=== PATIENT | female | born 1955 | race Caucasian/White ===

== ENCOUNTER 2016-08-22 22:34 | Inpatient (IN) | payer MEDICARE ==
[~2016-08-22] VITALS: Ht 160 cm; Wt 63.2 kg
[2016-08-22 22:30] VITALS: O2SAT 80
[2016-08-22 22:50] VITALS: O2SAT 100
[2016-08-22 22:55] VITALS: BP 125/67; PULSE 77; RESP 18; TEMP 93; TEMP 98; O2SAT 97
[2016-08-22] MEDS ORDERED: NOREPINEPHRINE 4 MG/4 ML AMP ONE (22:55)
[2016-08-22 23:00] VITALS: BP 77/35; PULSE 40; RESP 18; TEMP 93; O2SAT 96
[2016-08-22] MEDS ORDERED: LACTULOSE SYRUP 20 GM/30 ML CUP PO ONE (23:00)
[2016-08-22] MEDS ORDERED: SODIUM CHLORIDE 0.9% FLUSH 5 ML FLUSH IVF PRN (23:00)
[2016-08-22 23:12] VITALS: RESP 18
[2016-08-22 23:30] VITALS: BP 76/35; PULSE 90; RESP 18; O2SAT 96
[2016-08-22] MEDS ORDERED: fentaNYL DRIP 250 ML IV SCH (23:30)
[2016-08-22] MEDS ORDERED: MIDAZOLAM 100 MG/ML INJ 100 ML IV SCH (23:30)
[2016-08-22] MEDS ORDERED: CEFEPIME INJ 2,000 MG in SODIUM CHLORIDE 0.9% INJ 100 ML IV ONE (23:30)
[2016-08-22 23:39] LABS: BLOOD GAS BASE EXCESS -11.4 mmol/L (-2-2); BLOOD GAS CARBOXYHEMOGLOBIN 3.4 % (0-4); BLOOD GAS HCO3 13 mmol/L (22-26); BLOOD GAS METHEMOGLOBIN 1.6 % (0-2); BLOOD GAS O2 HGB SATURATION 96 % (90-100); BLOOD GAS PCO2 23 mmHg (38-42); BLOOD GAS PO2 340 mmHG (61-120); BLOOD GAS TOTAL HGB 8.3 G/DL (12.0-16.0); TEMP CORR TO 98.6
[2016-08-22 23:40] LABS: CRITICAL VALUE YES; OXYGEN DEVICE VENTILATOR
--- NOTE | 2016-08-22 23:40 | RADRPT ---
EXAM DATE/TIME: 08/22/2016 22:56 [facility] COMPARISON: No previous studies available for comparison. INDICATIONS : Intubation and right IJ central line placement. MEDICAL HISTORY : None. SURGICAL HISTORY : None. ENCOUNTER: Initial ACUITY: 1 day PAIN SCORE: Non-responsive. LOCATION: Bilateral chest FINDINGS: Endotracheal tube is in good position above the vicente. A right sided internal jugular vein catheter is in place without pneumothorax with its tip in the superior vena cava. A nasogastric tube is in gabrielle ce with its tip in the stomach. There is patchy alveolar disease bilaterally compatible with edema or pneumonia. A moderate size right sided effusion is present. CONCLUSION: 1. Satisfactory position of endotracheal tube as above. 2. Uncomplicated line placement. No evidence of pneumothorax. Víctor Cook MD on August 22, 2016 at 23:38 Board Certified Radiologist. This report was verified electronically.
[2016-08-22 23:41] LABS: DRAW SITE RT RADIAL; FIO2 100 %; NUMBER OF ARTERIAL PUNCTURES 1; STAT YES; ULNAR PULSE PRESENT; VENT SETTINGS VAC16/500/PEEP5
[2016-08-22] MEDS ORDERED: MIDAZOLAM 100 MG/ML INJ 100 ML ONE (23:47)
[2016-08-22] MEDS ORDERED: fentaNYL DRIP 250 ML ONE (23:48)
[2016-08-23] VITALS (29 sets, daily range): BP systolic 84–134; BP diastolic 41–54; PULSE 68–87; RESP 14–18; TEMP 93–99; O2SAT 96–100
[2016-08-23] MEDS ORDERED: SODIUM CHLOR 0.9% 1000 ML INJ 1,000 ML IV ONE
[2016-08-23 00:07] LABS: ALKALINE PHOSPHATASE 143 U/L (45-117); ALT (GPT) 43 U/L (10-53); AST (GOT) 99 U/L (15-37); BICARBONATE 12.7 MEQ/L (21.0-32.0); BLOOD UREA NITROGEN 99 MG/DL (7-18); CHLORIDE 90 MEQ/L (98-107); CREATINE KINASE 167 U/L (26-192); GLOMERULAR FILTRATION RATE 13 ML/MIN (>89); TOTAL BILIRUBIN ADULT 8.5 MG/DL (0.2-1.0)
[2016-08-23 00:11] LABS: SODIUM (NA) 121 MEQ/L (136-145)
[2016-08-23 00:12] LABS: ANION GAP 18 MEQ/L (5-15); POTASSIUM 8.3 MEQ/L (3.5-5.1)
[2016-08-23] MEDS ORDERED: PRED20 PO (00:14)
[2016-08-23] MEDS ORDERED: METO100T9 PO (00:14)
[2016-08-23] MEDS ORDERED: SPIR100T PO (00:14)
[2016-08-23] MEDS ORDERED: FURO40TA PO (00:14)
[2016-08-23] MEDS ORDERED: [UNRECOGNIZED DRUG - CODE] TOPICAL (00:14)
[2016-08-23] MEDS ORDERED: OMEP40CA2 PO (00:14)
[2016-08-23] MEDS ORDERED: DEXTROSE 50% IN WATER 50 ML VIAL(D50) IV PUSH ONE (00:15)
[2016-08-23] MEDS ORDERED: PIPERACIL-TAZO 2.25 GM PREMIX 50 ML IV ONE (00:15)
[2016-08-23] MEDS ORDERED: SODIUM BICARBONATE 8.4% SOLN 50 MEQ/50 ML VIAL SLOW IVP ONE (00:15)
[2016-08-23] MEDS ORDERED: SODIUM POLYSTYRENE SULFONATE SUSP 15 GM/60 ML CUP PO ONE ×2 (00:15→05:30)
[2016-08-23] MEDS: RESP: ALBUTEROL 2.5 MG/3 ML NEB (SCH) INH ×2 (00:27→00:28)
--- NOTE | 2016-08-23 00:29 | PD ---
HPI Chief Complaint: Code Blue Time Seen by Provider: 22:46 Travel History International Travel<30 days: No Contact w/Intl Traveler<30days: No Traveled to known affect area: No History of Present Illness HPI The patient arrives by EMS. Evidently she lost pulses twice en route and CPR was performed. Each time it was performed for about 1 minute. EMS reports the patient complained of a sudden onset of headache "my head" prior to a loss of consciousness associated with pulselessness on the vehicle monitor technician. She is 60 years old and is noted to have a history of COPD and cirrhosis, the latter secondary to alcoholism. She smokes about one cigarette per day. She no longer drinks alcohol. For the past few days she has been experiencing increasing generalized weakness according to the . Today she complained of pain in the region of the right abdomen. To touch she also felt somewhat cold. He called EMS for those reasons. Upon their arrival they found the patient to have a blood glucose of 30 and administered dextrose. 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 Patient was intubated shortly following arrival prior to intubation she was unable to state her name however stated she had pain in the abdomen generally. FORMERLY [facility] Past Medical History Narrative Medical Past medical history significant for cirrhosis, COPD and gastric ulcers. She smokes about one cigarette per day. states she has not drank alcohol recently. Social History Alcohol Use: Yes Tobacco Use: Yes Allergies-Medications (Allergen,Severity, Reaction): Coded Allergies: No Known Allergies (Unverified , 08/23/16) Reported Meds & Prescriptions Reported Meds & Active Scripts Active Reported Ciclopirox Topical (Ciclopirox Olamine) 0.77% Lotn 1 Applic TOPICAL BID Spironolactone 100 Mg Tab 100 Mg PO BIDPC Furosemide 40 Mg Tab 40 Mg PO BID Prednisone 20 Mg Tab 20 Mg PO BID Omeprazole 40 Mg Cap 40 Mg PO DAILY Metoprolol Succinate ER 24 HR (Metoprolol Succinate) 100 Mg Tab 100 Mg PO DAILY Review of Systems ROS Limitations: Clinical Condition Physical Exam Narrative GENERAL: 60-year-old female, chronically ill appearance, moderate distress SKIN: Warm and dry. Jaundice present. HEAD: Atraumatic. Normocephalic. EYES: Pupils equal and round. ++ scleral icterus. No injection or drainage. ENT: No nasal bleeding or discharge. Mucous membranes pink and moist. NECK: Trachea midline. No JVD. CARDIOVASCULAR: Regular rate and rhythm. No murmur appreciated. RESPIRATORY: No accessory muscle use. Clear to auscultation. Breath sounds equal bilaterally. GASTROINTESTINAL: Abdomen soft, non-tender, nondistended. Hepatic and splenic margins not palpable. MUSCULOSKELETAL: No obvious deformities. No clubbing. No cyanosis. No edema. Bilateral lower extremities 4+ edema pitting edema. NEUROLOGICAL: Moves all extremities in coordinated fashion. The cranial nerves appear symmetric. Gaze conjugate. Pupils equal round and reactive to light. Speech is comprehensive words though disorganized. She withdraws to pain. PSYCHIATRIC: Appropriate mood and affect; insight and judgment normal. Data Data Last Documented VS Vital Signs Date Time Temp Pulse Resp B/P Pulse Ox O2 Delivery O2 Flow Rate FiO2 08/23/16 00:30 86 18 95/46 96 Ventilator 08/23/16 00:18 93.0 08/22/16 22:50 100 08/22/16 22:30 15.00 VS reviewed Orders Electrocardiogram (08/22/16 22:46) Ammonia (08/22/16 22:46) Complete Blood Count With Diff (08/22/16 22:46) Comprehensive Metabolic Panel (08/22/16 22:46) Creatine Kinase (Cpk) (08/22/16 22:46) Prothrombin Time / Inr (Pt) (08/22/16 22:46) Act Partial Throm Time (Ptt) (08/22/16 22:46) Troponin I (08/22/16 22:46) Thyroid Stimulating Hormone (08/22/16 22:46) Lactic Acid Sepsis Protocol (08/22/16 22:46) Urinalysis - C+S If Indicated (08/22/16 22:46) Arterial Blood Gas (Abg) (08/22/16 22:46) Blood Culture (08/22/16 22:46) Chest, Single Ap (08/22/16 22:46) Ct Brain W/O Iv Contrast(Rout) (08/22/16 22:46) Blood Glucose (08/22/16 22:46) Ecg Monitoring (08/22/16 22:46) Iv Access Insert/Monitor (08/22/16 22:46) Oximetry (08/22/16 22:46) Urinary Catheter Insert/Apply (08/22/16 22:46) Sodium Chloride 0.9% Flush (Ns Flush) (08/22/16 23:00) Drug Screen, Random Urine (08/22/16 22:46) Alcohol (Ethanol) (08/22/16 22:46) ^ Orogastric Tube (08/22/16 22:46) Lactulose Liq (Lactulose Liq) (08/22/16 23:00) Lipase (08/22/16 22:46) Ct Abd/Pel W/O Iv Contrast (08/22/16 22:46) Norepinephrine-Dextrose Drip (Levophed-D (08/22/16 23:00) Norepinephrine Inj (Levophed Inj) (08/22/16 22:55) Ct Thorax/ Chest Wo Iv Contras (08/22/16 ) Neurological Rass Scale Q30MX2,Q2HX4,Q4H (08/22/16 23:29) Fentanyl Drip (Fentanyl Drip) (08/22/16 23:30) Midazolam Inj (Versed Inj) (08/22/16 23:30) Neurological Rass Scale Q30MX2,Q2HX4,Q4H (08/22/16 23:29) Cefepime Inj (Maxipime Inj) (08/22/16 23:30) Midazolam Inj (Versed Inj) (08/22/16 23:47) Fentanyl Drip (Fentanyl Drip) (08/22/16 23:48) Warming [place] / Warming Syst PRN (08/22/16 23:54) Sodium Chlor 0.9% 1000 Ml Inj (Ns 1000 M (08/23/16 00:00) Vancomycin Inj (Vancomycin Inj) (08/23/16 00:00) Insulin Human Regular Inj (Novolin R Inj (08/23/16 00:30) Dextrose 50% In [place] (Vial) Inj (D50w (Vi (08/23/16 00:15) Sodium Bicarbonate 8.4% Inj (Sodium Bica (08/23/16 00:15) Sodium Polysty Sulfate Liq (Kayexalate L (08/23/16 00:15) Insert Rectal Tube (08/23/16 00:13) Albuterol Neb (Albuterol Neb) (08/23/16 00:15) Piperacil-Tazo 2.25 Gm Premix (Zosyn 2.2 (08/23/16 00:15) Etomidate Inj (Amidate Inj) (08/23/16 00:30) Rocuronium Inj (Zemuron Inj) (08/23/16 00:30) Calcium Gluconate Inj (Calcium Gluconate (08/23/16 00:30) Sodium Bicarbonate 8.4% Inj (Sodium Bica (08/23/16 00:30) Calcium Gluconate Inj (Calcium Gluconate (08/23/16 00:30) Admit Order (Ed Use Only) (08/23/16 00:31) Urine Culture (08/22/16 23:15) Labs Laboratory Tests Test 08/22/16 08/22/16 08/22/16 08/22/16 23:10 23:15 23:28 23:59 Ammonia 79 MCMOL/L Sodium Level 121 MEQ/L Potassium Level 8.3 MEQ/L Chloride Level 90 MEQ/L Carbon Dioxide Level 12.7 MEQ/L Anion Gap 18 MEQ/L Blood Urea Nitrogen 99 MG/DL Creatinine 3.69 MG/DL Estimat Glomerular Filtration 13 ML/MIN Rate Random Glucose 126 MG/DL Lactic Acid Level 8.7 mmol/L Calcium Level 7.9 MG/DL Total Bilirubin 8.5 MG/DL Aspartate Amino Transf 99 U/L (AST/SGOT) Alanine Aminotransferase 43 U/L (ALT/SGPT) Alkaline Phosphatase 143 U/L Total Creatine Kinase 167 U/L Troponin I 0.06 NG/ML Total Protein 5.3 GM/DL Albumin 1.5 GM/DL Lipase 968 U/L Thyroid Stimulating Hormone 2.170 uIU/ML 3rd Gen Ethyl Alcohol Level LESS THAN 3 MG/DL Urine Color DARK-YELLOW Urine Turbidity CLOUDY Urine pH 5.5 Urine Specific [place] 1.016 Urine Protein 100 mg/dL Urine Glucose (UA) NEG mg/dL Urine Ketones NEG mg/dL Urine Occult Blood MOD Urine Nitrite NEG Urine Bilirubin NEG Urine Urobilinogen LESS THAN 2.0 MG/DL Urine Leukocyte Esterase LARGE Urine RBC 17 /hpf Urine WBC /hpf Urine WBC Clumps MOD Urine Bacteria MANY /hpf Urine Hyaline Casts 39 /lpf Microscopic Urinalysis Comment CATH-CULTURE IND Urine Opiates Screen NEG Urine Barbiturates Screen NEG Urine Amphetamines Screen NEG Urine Benzodiazepines Screen NEG Urine Cocaine Screen NEG Urine Cannabinoids Screen NEG Blood Gas Puncture Site RT RADIAL Blood Gas Patient Temperature 98.6 Blood Gas HCO3 13 mmol/L Blood Gas Base Excess -11.4 mmol/L Blood Gas Oxygen Saturation 96 % Arterial Blood pH 7.37 Arterial Blood Partial 23 mmHg Pressure CO2 Arterial Blood Partial 340 mmHG Pressure O2 Arterial Blood Oxygen Content 12.0 Vol % Arterial Blood 3.4 % Carboxyhemoglobin Arterial Blood Methemoglobin 1.6 % Blood Gas Hemoglobin 8.3 G/DL Oxygen Delivery Device VENTILATOR Blood Gas Ventilator Setting [id number] Blood Gas Inspired Oxygen 100 % Urine Random Creatinine 61.7 MG/DL Urine Random Sodium 38 MEQ/L Test 08/23/16 08/23/16 00:00 00:15 Prothrombin Time 30.0 SEC Prothromb Time International 2.6 RATIO Ratio Activated Partial 68.6 SEC Thromboplast Time White Blood Count 29.4 TH/MM3 Red Blood Count 2.24 MIL/MM3 Hemoglobin 9.0 GM/DL Hematocrit 26.1 % Mean Corpuscular Volume 116.6 FL Mean Corpuscular Hemoglobin 40.3 PG Mean Corpuscular Hemoglobin 34.5 % Concent Red Cell Distribution Width 15.4 % Platelet Count 59 TH/MM3 Mean Platelet Volume 9.2 FL Neutrophils (%) (Auto) 94.9 % Lymphocytes (%) (Auto) 1.2 % Monocytes (%) (Auto) 3.5 % Eosinophils (%) (Auto) 0.0 % Basophils (%) (Auto) 0.4 % Neutrophils # (Auto) 27.9 TH/MM3 Lymphocytes # (Auto) 0.4 TH/MM3 Monocytes # (Auto) 1.0 TH/MM3 Eosinophils # (Auto) 0.0 TH/MM3 Basophils # (Auto) 0.1 TH/MM3 CBC Comment AUTO DIFF Differential Total Cells 100 Counted Neutrophils % (Manual) 80 % Band Neutrophils % 15 % Lymphocytes % 2 % Monocytes % 1 % Neutrophils # (Manual) 28.5 TH/MM3 Metamyelocytes 2 % Differential Comment FINAL DIFF MANUAL Toxic Granulation 1+ Toxic Vacuolation PRESENT Platelet Estimate LOW Platelet Morphology Comment NORMAL Ovalocytes 1+ [place] Bodies PRESENT [place] Cells 1+ Acanthocytes 1+ Keratocytes OCC MDM Medical Decision Making Medical Screen Exam Complete: Yes Emergency Medical Condition: Yes Medical Record Reviewed: Yes Differential Diagnosis Anemia, multiorgan failure, sepsis, electrolyte imbalance, coronary occlusion, intracranial bleed or ischemic injury, hepatobiliary disease Narrative Course CBC & BMP Diagram 08/22/16 23:10 08/23/16 00:15 Bandemia 15% Total bilirubin 8.5 AST 99 Alkaline phosphatase 143 Ammonia 79 Troponin 0.06 Total protein 5.3 Albumin 1.3 Lipase 968 Lactic acid 8.7 Last [address] 08/22/16 2246 Signed Impressions: Service Date/Time: Tuesday, August 23, 2016 02:36 - CONCLUSION: 1. No evidence of acute intracranial pathology. No masses are identified. Víctor Cook MD Chest X-Ray 08/22/166 Signed Impressions: Service Date/Time: Monday, August 22, 2016 22:56 - CONCLUSION: 1. Satisfactory position of endotracheal tube as above. 2. Uncomplicated line placement. No evidence of pneumothorax. Víctor Cook MD Abdomen/Pelvis CT 08/22/162245 Signed Impressions: Service Date/Time: Tuesday, August 23, 2016 02:39 - CONCLUSION: 1. No evidence of acute abdominal or pelvic process. No masses are identified. 2. Large volume ascites Víctor Cook MD Chest CT 08/22/16 0000 Signed Impressions: Service Date/Time: Tuesday, August 23, 2016 02:39 - CONCLUSION: 1. Bilateral effusions larger on the right. 2. Bibasilar atelectasis 3. Ascites Víctor Cook MD Patient was intubated shortly following arrival. A right IJ triple lumen line was placed. Levophed was started shortly following arrival. Zosyn 2.25 g and 1.25 g of Vanco started. Patient has multiorgan dysfunction syndrome with a UTI bilateral pleural effusions with atelectasis. CT of the abdomen pelvis as well as the head are unremarkable. Warming blanket started. Numerous rounds of calcium and bicarbonate were administered as well as bicarbonate drip. The patient received total of 3 L crystalloid while under care of the ER. Critical Care Narrative Aggregate critical care time was 60 minutes. Time to perform other separately billable procedures was not included in the critical care time. My time did not include minutes spent treating any other patients simultaneously or on activities that did not directly contribute to the patient's treatment. The services I provided to this patient were to treat and/or prevent clinically significant deterioration that could result in: Cardiopulmonary arrest, mortality I provided critical care services requiring my management, as noted below: Chart data review, documentation time, medication orders and management, vital sign assessments/reviewing monitor data, ordering and reviewing lab tests, ordering and interpreting/reviewing x-rays and diagnostic studies, care of the patient and discussion of the patient with the admitting physicians. Procedures Procedure Narrative After the risks and benefits were discussed the following procedure was performed: INTUBATION: The patient was put in optimal position for the procedure. Rapid sequence intubation was initiated by me using 20 milligrams of etomidate IV and 50 milligrams of rocuronium IV. The patient was intubated with a 8-0 cuffed endotracheal tube. Tube placement was confirmed by visualization of the tube and balloon passing through the cords, capnometry and subsequent chest x-ray. Breath sounds were equal and well aerated bilaterally postintubation. No breath sounds over stomach. Patient tolerated procedure well. CENTRAL VENOUS LINE: The site was prepped with Betadine and sterilely draped. It was infiltrated with 1% lidocaine plain. The deep vein was cannulated using normal Seldinger technique. A 3 lumen central line was placed in the R IJ site and secured with simple interrupted suture. The site was sterilely dressed. The patient tolerated the procedure well. Ultrasound guidance employed. Sepsis Criteria SIRS Criteria (2 or more): Temp > 100.9 or < 96.8, Heart rate over 90, WBC > 42000, < 4000 or > 10% bands Sepsis Criteria (SIRS+source): Infect source susp/known Severe Sepsis (+one): Lactate >2 Septic Shock Criteria: Lactic acid >=4 Multiple Organ Dysfunction Syn: Evidence -2 organs failing Diagnosis Primary Impression: Multiple organ failure with liver failure Additional Impressions: Hyperkalemia Pancreatitis Qualified Code: K85.90 - Acute pancreatitis, unspecified complication status, unspecified pancreatitis type Hepatic encephalopathy Admitting Information Admitting Physician Requests: Garret Hartmann MD Aug 23, 2016 00:29
[2016-08-23 00:30] LABS: BACTERIA, URINE MANY /hpf; BLOOD, URINE MOD (NEG); GLUCOSE,URINE NEG (NEG); HYALINE CAST, URINE 39 /lpf (RARE); KETONE, URINE NEG (NEG); NITRITE,URINE NEG (NEG); PH, URINE 5.5 (5.0-8.5); URINE COLOR DARK-YELLOW (YELLW/STRAW)
[2016-08-23 00:30] LABS: APTT (PATIENT) 68.6 SEC (24.3-30.1); INTERNATIONAL NORMALIZED RATIO 2.6 RATIO
[2016-08-23] MEDS ORDERED: ROCURONIUM INJ 50 MG/5 ML VIAL IV ONE (00:30)
[2016-08-23] MEDS ORDERED: SODIUM CHLORIDE 0.9% FLUSH 5 ML FLUSH IV FLUSH PRN (00:30)
[2016-08-23] MEDS ORDERED: ETOMIDATE 20 MG/10 ML VIAL IV PUSH ONE (00:30)
[2016-08-23] MEDS ORDERED: INSULIN HUMAN REGULAR 1,000 UNITS/10 ML VIAL IV PUSH ONE ×2 (00:30→05:30)
[2016-08-23] MEDS ORDERED: CHLORHEXIDINE GLUCONATE 2 % 1 PACK (2 CLOTHS) TOP PRN (00:30)
[2016-08-23] MEDS ORDERED: CALCIUM GLUCONATE 10% 1 GM/10 ML VIAL IV PUSH ONE ×3 (00:30→05:30)
[2016-08-23] MEDS ORDERED: RESP: ALBUTEROL 2.5 MG/IPRATROPIUM 0.5 MG NEB (PRN) INH (00:30)
[2016-08-23] MEDS ORDERED: SODIUM BICARBONATE 8.4% INJ 50 MEQ/50 ML SYR IV PUSH ONE (00:30)
[2016-08-23] MEDS ORDERED: MISCELLANEOUS NURSING INFORMATION XX SCH (00:30)
[2016-08-23] MEDS ORDERED: ONDANSETRON HCL 4 MG/2 ML VIAL IV PRN (00:30)
[2016-08-23 00:33] LABS: COMMENT (UR) CATH-CULTURE IND; CULTURE IF INDICATED CATH CULTURE IND
[2016-08-23 00:40] LABS: AMPHETAMINE, URINE NEG (NEG); BARBITURATES, URINE NEG (NEG); COCAINE, URINE NEG (NEG)
[2016-08-23] MEDS ORDERED: Vancomycin Consult Pharmacy 1 EA OTHER SCH (00:45)
[2016-08-23] MEDS ORDERED: SODIUM CHLOR 0.9% 250 ML INJ 250 ML IV ONE (00:45)
[2016-08-23] MEDS: VANCOMYCIN INJ 1,250 MG in SODIUM CHLOR 0.9% 250 ML INJ 250 ML IV ONE ×2 (00:49→04:25)
[2016-08-23] MEDS: NOREPINEPHRINE-DEXTROSE DRIP 250 ML IV SCH ×7 (00:55→18:09)
[2016-08-23 01:03] LABS: AUTOMATED NEUTROPHIL # 27.9 TH/MM3 (1.8-7.7); BASOPHIL # 0.1 TH/MM3 (0-0.2); BASOPHIL % 0.4 % (0.0-2.0); HEMATOCRIT 26.1 % (35.0-46.0); LYMPH % 1.2 % (9.0-44.0); LYMPHOCYTE # 0.4 TH/MM3 (1.0-4.8); MEAN CELL VOLUME 116.6 FL (80.0-100.0); MEAN CORPUSCULAR HEMOGLOBIN 40.3 PG (27.0-34.0); MEAN CORPUSCULAR HGB CONC 34.5 % (32.0-36.0); MONO % 3.5 % (0.0-8.0); NEUT % 94.9 % (16.0-70.0); PLATELET COUNT 59 TH/MM3 (150-450); RED BLOOD COUNT 2.24 MIL/MM3 (4.00-5.30); RED CELL DISTRIBUTION WIDTH 15.4 % (11.6-17.2); WHITE BLOOD COUNT 29.4 TH/MM3 (4.0-11.0)
[2016-08-23 01:07] LABS: HEMO FLAGS AUTO DIFF
[2016-08-23 01:23] LABS: LACTIC ACID GHOST NOT REPORTABLE
[2016-08-23 01:39] LABS: BANDS 15 % (0-6); METAMYELOCYTES 2 % (0-1); NEUTROPHIL # MANUAL DIFF 28.5 TH/MM3 (1.8-7.7); PLATELET ESTIMATE SMEAR LOW (NORMAL); PLATELET MORPHOLOGY NORMAL (NORMAL); POLYS (SEG NEUTROPHILS) 80 % (16-70); SCAN/DIFF FINAL DIFF MANUAL; TOXIC GRANULATION 1+ (NORMAL); TOXIC VACUOLATION PRESENT (NONE SEEN); WBC DIFF SAMPLE 100
[2016-08-23 01:41] LABS: HOWELL-JOLLY BODIES PRESENT (NONE SEEN); OVALOCYTES 1+ (NORMAL)
[2016-08-23 01:42] LABS: ACANTHOCYTES 1+ (NORMAL); KERATOCYTES OCC (NORMAL)
[2016-08-23 01:44] LABS: BURR CELLS 1+ (NORMAL)
[2016-08-23] MEDS ORDERED: VANCOMYCIN HCL 500 MG ON-CALL/NS 100 ML IV ONE ×2 (02:00)
[2016-08-23] MEDS: VASOPRESSIN INJ 40 UNITS in DEXTROSE 5% IN WATER 100ML INJ 98 ML IV SCH ×4 (02:08→15:59)
[2016-08-23] MEDS: HYDROCORTISONE SOD SUCCINATE 100 MG VIAL IV PUSH SCH ×5 (02:09→23:37)
--- NOTE | 2016-08-23 02:52 | RADRPT ---
EXAM DATE/TIME: 08/23/2016 02:36 [facility] COMPARISON: No previous studies available for comparison. INDICATIONS : Altered mental status. RADIATION DOSE: 53.99 CTDIvol (mGy) MEDICAL HISTORY : Non-responsive. SURGICAL HISTORY : Non-responsive. ENCOUNTER: Initial ACUITY: 1 day PAIN SCALE: Non-responsive LOCATION: cranial TECHNIQUE: Multiple contiguous axial images were obtained of the head. Using automated exposure control and adj ustment of the mA and/or kV according to patient size, radiation dose was kept as low as reasonably a chievable to obtain optimal diagnostic quality images. FINDINGS: CEREBRUM: The ventricles are normal for age. No evidence of midline shift, mass lesion, hemorrhage or acute in farction. No extra-axial fluid collections are seen. POSTERIOR FOSSA: The cerebellum and brainstem are intact. The 4th ventricle is midline. The cerebellopontine angle i s unremarkable. EXTRACRANIAL: The visualized portion of the orbits is intact. SKULL: The calvaria is intact. No evidence of skull fracture. CONCLUSION: 1. No evidence of acute intracranial pathology. No masses are identified. Víctor Cook MD on August 23, 2016 at 2:49 Board Certified Radiologist. This report was verified electronically.
--- NOTE | 2016-08-23 02:55 | RADRPT ---
EXAM DATE/TIME: 08/23/2016 02:39 [facility] COMPARISON: CHEST SINGLE AP, August 22, 2016, 22:56. INDICATIONS : Shortness of breath. RADIATION DOSE: 11.36 CTDIvol (mGy) ; Combined studies - Thorax/Abdomen/Pelvis MEDICAL HISTORY : Non-responsive. SURGICAL HISTORY : Non-responsive. ENCOUNTER: Initial ACUITY: 1 day PAIN SCALE: Non-responsive LOCATION: chest TECHNIQUE: Volumetric scanning of the chest was performed. Using automated exposure control and adjustment of t he mA and/or kV according to patient size, radiation dose was kept as low as reasonably achievable to obtain optimal diagnostic quality images. FINDINGS: Large right-sided effusion is present with moderate left effusion. There is subsegmental atelectasis in the both bases. The mediastinum is shifted to the left. Examination of the mediastinum demonstrates no abnormally enlarged lymph nodes by CT criteria. No axi llary or hilar abnormalities are identified. Coronary artery calcifications are present. Endotracheal tube is in good position above the vicente. A nasogastric tube is in place with its tip in the stomac h. Ascites is present in the upper abdomen. CONCLUSION: 1. Bilateral effusions larger on the right. 2. Bibasilar atelectasis 3. Ascites Víctor Cook MD on August 23, 2016 at 2:52 Board Certified Radiologist. This report was verified electronically.
--- NOTE | 2016-08-23 03:01 | RADRPT ---
EXAM DATE/TIME: 08/23/2016 02:39 [facility] COMPARISON: No previous studies available for comparison. INDICATIONS : Abdomen pain. ORAL CONTRAST: No oral contrast ingested. RADIATION DOSE: 11.36 CTDIvol (mGy) ; Combined studies - Thorax/Abdomen/Pelvis MEDICAL HISTORY : Non-responsive. SURGICAL HISTORY : Non-responsive. ENCOUNTER: Initial ACUITY: 1 day PAIN SCALE: Non-responsive LOCATION: abdomen TECHNIQUE: Volumetric scanning of the abdomen and pelvis was performed. Using automated exposure control and ad justment of the mA and/or kV according to patient size, radiation dose was kept as low as reasonably achievable to obtain optimal diagnostic quality images. FINDINGS: Bilateral effusions and bibasilar atelectasis are present right greater than left. Large volume ascit es is present. The liver and spleen are normal in size and no focal defects are identified. The gallb ladder is absent. The pancreas demonstrates normal contour without evidence of mass or ductal dilatat ion. The adrenal glands and kidneys appear normal bilaterally. No hydronephrosis or mass lesions are identified. Examination of the pelvis demonstrates no evidence of free fluid or pelvic mass. No abnormally enlarg ed inguinal or retroperitoneal lymph nodes are present. The bladder is unremarkable. There is edema i n the colonic wall though this is likely related to the ascites. There is no evidence of abscess. CONCLUSION: 1. No evidence of acute abdominal or pelvic process. No masses are identified. 2. Large volume ascites Víctor Cook MD on August 23, 2016 at 2:54 Board Certified Radiologist. This report was verified electronically.
[2016-08-23 03:35] LABS: BLOOD GAS CARBOXYHEMOGLOBIN 2.7 % (0-4); BLOOD GAS HCO3 19 mmol/L (22-26); BLOOD GAS METHEMOGLOBIN 0.5 % (0-2); BLOOD GAS O2 HGB SATURATION 97 % (90-100); BLOOD GAS PCO2 33 mmHg (38-42); BLOOD GAS PO2 202 mmHg (61-120); BLOOD GAS TOTAL HGB 7.7 G/DL (12.0-16.0); CRITICAL VALUE NO; OXYGEN DEVICE VENTILATOR; TEMP CORR TO 98.6; VENT SETTINGS AC/18/450/PEEP5
[2016-08-23 03:36] LABS: DRAW SITE ALINE; FIO2 50 %; STAT NO
[2016-08-23 03:41] LABS: HEMATOCRIT 22.4 % (35.0-46.0); MEAN CELL VOLUME 116.3 FL (80.0-100.0); MEAN CORPUSCULAR HEMOGLOBIN 39.2 PG (27.0-34.0); MEAN CORPUSCULAR HGB CONC 33.7 % (32.0-36.0); PLATELET COUNT 49 TH/MM3 (150-450); RED BLOOD COUNT 1.92 MIL/MM3 (4.00-5.30); RED CELL DISTRIBUTION WIDTH 15.2 % (11.6-17.2); WHITE BLOOD COUNT 29.9 TH/MM3 (4.0-11.0)
[2016-08-23 03:43] LABS: REVIEW FLAG FINAL
[2016-08-23 03:56] LABS: INTERNATIONAL NORMALIZED RATIO 3.4 RATIO; PROTHROMBIN TIME - PATIENT 39.7 SEC (9.8-11.6)
[2016-08-23] MEDS: CHLORHEXIDINE GLUCONATE 2 % 1 PACK (2 CLOTHS) TOP SCH (04:00)
[2016-08-23 04:11] LABS: APTT (PATIENT) 131.9 SEC (24.3-30.1)
[2016-08-23 04:19] LABS: ALKALINE PHOSPHATASE 115 U/L (45-117); ALT (GPT) 40 U/L (10-53); ANION GAP 16 MEQ/L (5-15); AST (GOT) 92 U/L (15-37); BICARBONATE 19.1 MEQ/L (21.0-32.0); BLOOD UREA NITROGEN 95 MG/DL (7-18); CHLORIDE 97 MEQ/L (98-107); GLOMERULAR FILTRATION RATE 15 ML/MIN (>89); MAGNESIUM 2.3 MG/DL (1.5-2.5); POTASSIUM 5.5 MEQ/L (3.5-5.1); SODIUM (NA) 132 MEQ/L (136-145); TOTAL BILIRUBIN ADULT 8.4 MG/DL (0.2-1.0)
[2016-08-23] MEDS: DEXTROSE 10% INJ 1,000 ML IV SCH ×2 (04:26→23:37)
[2016-08-23] MEDS ORDERED: ATROPINE SULFATE 1 MG/10 ML SYRINGE IV ONE (05:00)
[2016-08-23] MEDS ORDERED: SODIUM BICARBONATE 8.4% INJ 50 MEQ/50 ML SYR IV ONE (05:00)
[2016-08-23] MEDS ORDERED: CALCIUM CHLORIDE 10% SOLN 1 GRAM/10 ML SYR IV ONE (05:00)
[2016-08-23] MEDS ORDERED: SODIUM BICARBONATE 8.4% INJ 50 MEQ/50 ML SYR SLOW IVP ONE (05:30)
[2016-08-23] MEDS ORDERED: DEXTROSE 50% IN WATER 50 ML SYRINGE IV ONE (05:30)
--- NOTE | 2016-08-23 06:03 | PD.PROCEDR ---
Procedure Note Procedure Procedure: Arterial Line Placement Left radial arterial line placement Diagnosis: End-stage liver disease, septic shock Indications: Need for beat to beat hemodynamic monitoring Consent: Consent is deemed emergent or medically necessary Description of the Procedure: Left wrist was prepped and draped sterilely. 1% lidocaine was used for local anesthesia. The pulse was located and a needle was advanced into the artery. A 20 gauge, 12 cm catheter was advanced into the artery using a modified Seldinger technique. The catheter was sutured to the skin and a sterile dressing was applied. The catheter was connected to a pressure transducer and an arterial waveform was noted. There were no immediate complications noted. There was minimal EBL. I personally performed the procedure. Mario Davis MD Aug 23, 2016 06:03
--- NOTE | 2016-08-23 06:09 | PD.PROCEDR ---
Procedure Note Procedure Diagnostic Paracentesis Procedure Note Diagnosis: End-stage liver disease, septic shock Indications: Septic shock with abdominal pain, need to rule out spontaneous bacterial peritonitis Consent: Written consent was obtained Anesthesia: Versed IV, fentanyl IV, 1% lidocaine locally Description of the Procedure: The patient was placed in the supine position. The area of largest fluid collection was marked pre-procedure using ultrasound guidance. The area was prepped and draped sterilely. 1% Lidcaine was infiltrated subcutaneously. A small incision was made using a #11 blade. A 12g needle and angiocath were advanced under negative pressure aspiration until fluid was obtained. The catheter was advanced over the needle easily and without resistance. At the conclusion of the procedure, the catheter was removed and a dressing was applied. There were no immediate complications noted. There was minimal EBL. The patient tolerated the procedure well. Findings: Clear, icteric fluid. Approximately 60 cc of fluid were removed. This was sent for culture and cell count. I personally performed the procedure. Mario Davis MD Aug 23, 2016 06:09
--- NOTE | 2016-08-23 06:12 | PD.PROCEDR ---
Procedure Note Procedure Percutaneous Pigtail Tube Thoracostomy Procedure Note Right-sided 10 [place] pigtail thoracostomy Diagnosis: End-stage liver disease, septic shock Indications: Large right-sided hemothorax Consent: Written consent was obtained Anesthesia: Versed IV, fentanyl IV, 1% lidocaine locally Description of the Procedure: The patient was placed in the supine position. The arm was abducted above the head and secured. The right lateral chest was prepped and draped sterilely to include the axilla and nipple. 1% Lidcaine was infiltrated subcutaneously and into the tissues down to the periosteum of the rib. The 5th intercostal space was identified. A small incision was made using a #11 blade. Initially, the plan is for diagnostic thoracentesis to rule out empyema. At this time 19-gauge needle was inserted and the pleural fluid was aspirated. However, the pleural fluid was bloody and nearly sidra hemothorax. At this point, given the concern for hemothorax secondary to chest compressions, the decision was made to transition to percutaneous tube thoracostomy. At the mid-axillary line, a 10 Fr pigtail catheter with stylet and pencil point trochar introducer were inserted superior to the adjacent rib and the pigtail catheter was advanced over the trochar in a modified Seldinger Technique, easily and without resistance. The catheter was connected to a Pleur -o-vac and connected to [id number] suction. The catheter was sutured to the skin using a 2-0 silk sandal suture and an occlusive dressing was applied. There were no immediate complications noted. There was minimal additional EBL. The patient tolerated the procedure well. Findings: Approximately 1 L of hemothorax was evacuated. There is no air leak. A Chest x-ray has been ordered. I personally performed the procedure. Mario Davis MD Aug 23, 2016 06:12
[2016-08-23] MEDS ORDERED: ALBUMIN HUMAN 25% 25 GM/100 ML BAGP IV ONE (06:14)
--- NOTE | 2016-08-23 06:33 | RADRPT ---
EXAM DATE/TIME: 08/23/2016 05:48 [facility] COMPARISON: CHEST SINGLE AP, August 22, 2016, 22:56. INDICATIONS : Shortness of breath, post thoracentesis right side. MEDICAL HISTORY : None. SURGICAL HISTORY : None. ENCOUNTER: Subsequent ACUITY: 2 days PAIN SCORE: Non-responsive. LOCATION: Right chest FINDINGS: The cardiac silhouette is normal in transverse diameter. Following right thoracentesis no pneumothora x is identified. There is significant reduction in the previously seen effusion. There is bilateral l ower lobe atelectasis versus pneumonia. Moderate size bilateral pleural effusions are identified. CONCLUSION: 1. No evidence of pneumothorax following thoracentesis. Víctor Cook MD on August 23, 2016 at 6:30 Board Certified Radiologist. This report was verified electronically.
--- NOTE | 2016-08-23 06:34 | HHI.HP ---
HPI Service Critical Care Medicine Primary Care Physician No Primary Care Physician Admission Diagnosis MODS, HyperK, Resp Failure Diagnosis: Chief Complaint: weakness Travel History International Travel<30 Days: No Contact w/Intl Traveler <30 Da: No Traveled to Known Affected Are: No History of Present Illness This is a 60-year-old female with a past medical history of end-stage liver disease secondary to alcoholic cirrhosis who was vacationing from [place] for the week and has had approximately 1 week of worsening weakness, malaise, fatigue which culminated tonight when her called 911 for worsening fatigue. In the ambulance on the way to the emergency department, however she had a PEA arrest and had one round of CPR and ROSC was obtained. In the emergency department, she was found to have a glucose in the 30s, a potassium over 8, in multiorgan system failure. Her lactate was 8. She was placed on norepinephrine. A right IJ central line was placed by the ER physician and she was intubated in the emergency department. Her does state that she has had about a week of worsening abdominal pain for which she did not seek medical attention. The does not know much more about her acute illness, but she denied any other symptoms prior to arriving. On my evaluation, the patient is intubated and unresponsive and unable to provide additional information. Review of Systems ROS Limitations: Clinical Condition, Intubated, Altered Mental Status, Unresponsive Past Family Social History Allergies: Coded Allergies: No Known Allergies (Unverified , 08/23/16) Past Medical History End-stage liver disease secondary to alcoholic cirrhosis Past Surgical History Unknown secondary to clinical condition of the patient Reported Medications Unknown secondary to clinical condition the patient Active Ordered Medications See MAR Family History Unknown secondary to the clinical condition of the patient. Unlikely to be contributory to her acute illness Social History Positive for EtOH. Her last drink was approximately a week ago. Physical Exam Vital Signs Vital Signs Date Time Temp Pulse Resp B/P Pulse Ox O2 Delivery O2 Flow Rate FiO2 08/23/16 03:49 98 30 08/23/16 02:20 100 100 08/23/16 01:30 95.0 82 18 84/41 96 Ventilator 08/23/16 01:00 93.0 86 18 105/48 96 Ventilator 08/23/16 00:42 100 40 08/23/16 00:30 86 18 95/46 96 Ventilator 08/23/16 00:18 93.0 69 18 111/50 96 Ventilator 08/23/16 00:09 93.0 08/22/16 23:30 90 18 76/35 96 Ventilator 08/22/16 23:12 18 08/22/16 23:00 93.0 40 18 77/35 96 Ventilator 08/22/16 22:55 93.0 77 18 125/67 97 08/22/16 22:50 100 100 08/22/16 22:30 80 15.00 Physical Exam GENERAL: Middle-aged female, lying in bed, critically ill, intubated. Very icteric HEENT: Pupils 4 mm, sluggishly reactive, equal, conjugate. Mucous membranes are dry. NECK: Trachea is midline. No JVD. CHEST: Equal chest rise. Coarse breath sounds. Intubated. CARDIOVASCULAR: Tachycardic rate, regular rhythm. No appreciable murmurs. ABDOMEN: Soft, protuberant, positive fluid wave, moderately distended, no guarding. Stigmata of chronic liver disease MUSCULOSKELETAL: 3+ peripheral edema of the lower extremities. Distal pulses 1+ . NEUROLOGICAL: RASS -4. Intubated, sedated. Weakly withdraws 4 Laboratory Laboratory Tests Test 08/22/16 08/22/16 08/22/16 08/23/16 23:10 23:15 23:28 00:00 Ammonia 79 Sodium Level 121 Potassium Level 8.3 Chloride Level 90 Carbon Dioxide Level 12.7 Anion Gap 18 Blood Urea Nitrogen 99 Creatinine 3.69 Estimat Glomerular Filtration 13 Rate Random Glucose 126 Lactic Acid Level 8.7 Calcium Level 7.9 Total Bilirubin 8.5 Aspartate Amino Transf 99 (AST/SGOT) Alanine Aminotransferase 43 (ALT/SGPT) Alkaline Phosphatase 143 Total Creatine Kinase 167 Troponin I 0.06 Total Protein 5.3 Albumin 1.5 Lipase 968 Thyroid Stimulating Hormone 2.170 3rd Gen Ethyl Alcohol Level LESS THAN 3 Urine Color DARK-YELLOW Urine Turbidity CLOUDY Urine pH 5.5 Urine Specific [place] 1.016 Urine Protein 100 Urine Glucose (UA) NEG Urine Ketones NEG Urine Occult Blood MOD Urine Nitrite NEG Urine Bilirubin NEG Urine Urobilinogen LESS THAN 2.0 Urine Leukocyte Esterase LARGE Urine RBC 17 Urine WBC Urine WBC Clumps MOD Urine Bacteria MANY Urine Hyaline Casts 39 Microscopic Urinalysis Comment CATH-CULTURE IND Urine Opiates Screen NEG Urine Barbiturates Screen NEG Urine Amphetamines Screen NEG Urine Benzodiazepines Screen NEG Urine Cocaine Screen NEG Urine Cannabinoids Screen NEG Blood Gas Puncture Site RT RADIAL Blood Gas Patient Temperature 98.6 Blood Gas HCO3 13 Blood Gas Base Excess -11.4 Blood Gas Oxygen Saturation 96 Arterial Blood pH 7.37 Arterial Blood Partial 23 Pressure CO2 Arterial Blood Partial 340 Pressure O2 Arterial Blood Oxygen Content 12.0 Arterial Blood 3.4 Carboxyhemoglobin Arterial Blood Methemoglobin 1.6 Blood Gas Hemoglobin 8.3 Oxygen Delivery Device VENTILATOR Blood Gas Ventilator Setting VAC16/500/PEEP5 Blood Gas Inspired Oxygen 100 Prothrombin Time 30.0 Prothromb Time International 2.6 Ratio Activated Partial 68.6 Thromboplast Time Test 08/23/16 08/23/16 08/23/16 08/23/16 00:15 00:45 01:56 03:22 White Blood Count 29.4 Red Blood Count 2.24 Hemoglobin 9.0 Hematocrit 26.1 Mean Corpuscular Volume 116.6 Mean Corpuscular Hemoglobin 40.3 Mean Corpuscular Hemoglobin 34.5 Concent Red Cell Distribution Width 15.4 Platelet Count 59 Mean Platelet Volume 9.2 Neutrophils (%) (Auto) 94.9 Lymphocytes (%) (Auto) 1.2 Monocytes (%) (Auto) 3.5 Eosinophils (%) (Auto) 0.0 Basophils (%) (Auto) 0.4 Neutrophils # (Auto) 27.9 Lymphocytes # (Auto) 0.4 Monocytes # (Auto) 1.0 Eosinophils # (Auto) 0.0 Basophils # (Auto) 0.1 CBC Comment AUTO DIFF Differential Total Cells 100 Counted Neutrophils % (Manual) 80 Band Neutrophils % 15 Lymphocytes % 2 Monocytes % 1 Neutrophils # (Manual) 28.5 Metamyelocytes 2 Differential Comment FINAL DIFF MANUAL Toxic Granulation 1+ Toxic Vacuolation PRESENT Platelet Estimate LOW Platelet Morphology Comment NORMAL Ovalocytes 1+ [place]-Verdigre Bodies PRESENT [place] Cells 1+ Acanthocytes 1+ Keratocytes OCC Blood Type O POSITIVE O POSITIVE Blood Bank Comment Serum Osmolality 319 Lactic Acid Level 9.2 Blood Gas Puncture Site LILIBETH Blood Gas Patient Temperature 98.6 Blood Gas HCO3 19 Blood Gas Base Excess -5.0 Blood Gas Oxygen Saturation 97 Arterial Blood pH 7.39 Arterial Blood Partial 33 Pressure CO2 Arterial Blood Partial 202 Pressure O2 Arterial Blood Oxygen Content 11.0 Arterial Blood 2.7 Carboxyhemoglobin Arterial Blood Methemoglobin 0.5 Blood Gas Hemoglobin 7.7 Oxygen Delivery Device VENTILATOR Blood Gas Ventilator Setting AC/18/450/PEEP5 Blood Gas Inspired Oxygen 50 Test 08/23/16 03:26 White Blood Count 29.9 Red Blood Count 1.92 Hemoglobin 7.5 Hematocrit 22.4 Mean Corpuscular Volume 116.3 Mean Corpuscular Hemoglobin 39.2 Mean Corpuscular Hemoglobin 33.7 Concent Red Cell Distribution Width 15.2 Platelet Count 49 Mean Platelet Volume 9.1 Prothrombin Time 39.7 Prothromb Time International 3.4 Ratio Activated Partial 131.9 Thromboplast Time Sodium Level 132 Potassium Level 5.5 Chloride Level 97 Carbon Dioxide Level 19.1 Anion Gap 16 Blood Urea Nitrogen 95 Creatinine 3.10 Estimat Glomerular Filtration 15 Rate Random Glucose 103 Lactic Acid Level 8.7 Calcium Level 7.9 Phosphorus Level 6.6 Magnesium Level 2.3 Total Bilirubin 8.4 Aspartate Amino Transf 92 (AST/SGOT) Alanine Aminotransferase 40 (ALT/SGPT) Alkaline Phosphatase 115 Total Protein 4.5 Albumin 1.4 Date/Time Procedure Status Source Growth 08/22/16 23:35 Aerobic Blood Culture Received Blood Peripheral Pending 08/22/16 23:35 Anaerobic Blood Culture Received Blood Peripheral Pending 08/22/16 23:15 Urine Culture Worksheet Urine Catheterized Urine Pending Result Diagram: 08/23/16 0326 08/23/16325 Imaging I performed a bedside critical care ultrasound which demonstrates mild LV systolic dysfunction globally, preserved RV function, no significant valvular lesions. No pericardial effusion. Collapsible IVC. Last [address] 08/22/162245 Signed Impressions: Service Date/Time: Tuesday, August 23, 2016 02:36 - CONCLUSION: 1. No evidence of acute intracranial pathology. No masses are identified. Víctor Cook MD Chest X-Ray 08/22/162245 Signed Impressions: Service Date/Time: Monday, August 22, 2016 22:56 - CONCLUSION: 1. Satisfactory position of endotracheal tube as above. 2. Uncomplicated line placement. No evidence of pneumothorax. Víctor Cook MD Abdomen/Pelvis CT 08/22/162245 Signed Impressions: Service Date/Time: Tuesday, August 23, 2016 02:39 - CONCLUSION: 1. No evidence of acute abdominal or pelvic process. No masses are identified. 2. 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 Given her history, it seems as if septic shock with delayed presentation to be the ultimate cause of her clinical decline. As far as her cardiac arrest, this could be hyperkalemia or hypoglycemia or from refractory shock. In terms of her shock state, this could be from acute pancreatitis given her elevated lipase level, this also could be from spontaneous bacterial peritonitis. Her states that she gets weekly high-volume paracenteses so there is clearly an access for abdominal infection. This could also be acute pyelonephritis or urinary tract infection. In addition all this, her CT chest abdomen and pelvis demonstrates a large right pleural effusion which could be ascites from microperforations the diaphragm or an empyema or hemothorax from's chest compressions. We will pursue diagnostic paracentesis, thoracentesis. We will treat her empirically with vancomycin and Zosyn. We will pretty culture her. She is now on 2 pressors and we will aggressively manage her sepsis. We will also aggressively manage her hyperkalemia, which if unresponsive to conservative measures may require renal replacement therapy. At this point she is severely critically ill in multiorgan system failure. I'm not sure given her severity of her end-stage liver disease if she will survive this acute illness. I have discussed this with her who understands. An aggressive and she remains a full code. Plan by systems: Neurologic: Metabolic encephalopathy Hyperammonemia Possible hypoxic ischemic encephalopathy Alcohol abuse Every hour neuro checks Versed for sedation, goal RASS -2. Think this point she is still too hemodynamically unstable for propofol When she is more clinically stable, we will need to restart lactulose and rifaximin for her elevated ammonia level, however she is too unstable this point Monitor for alcohol withdrawal Avoiding long-acting sedating meds IV thiamine Respiratory: Acute hypoxic and hypercarbic respiratory failure Right-sided hemothorax Placed right-sided atypical chest tube, please see separate procedure for details Vent bundle Head of bed 30 Wean FiO2 for goal SPO2 greater than 90% Low tidal volume ventilation Does not meet SBT criteria today for hemodynamic instability Cardiovascular: Septic shock Status post cardiac arrest Norepinephrine and vasopressin for goal map greater than 65 Cardiac arrest could be secondary to hyperkalemia or hypoglycemia or septic shock with delayed presentation Renal: Acute kidney injury Wills for accurate I's and O's Follow-up urine electrolytes CT abdomen and pelvis without evidence of hydronephrosis -- Strict I/Os FEN/GI: Acute life-threatening hyperkalemia Intravascular hypovolemia End-stage liver disease Alcoholic cirrhosis Elevated lipase Possible spontaneous bacterial peritonitis Ascites Acute protein calorie malnutritionsevere Severe hypoalbuminemia Nothing by mouth given high vasopressor requirements Kayexalate, insulin D50, sodium bicarbonate, calcium chloride for hyperkalemia. We'll recheck potassium. May require renal replacement therapy Diagnostic paracentesis Follow-up peritoneal cultures Albumin 25% 100 mL's 1 given hemodynamic instability with septic shock and a serum albumin level less than 2.5 Daily BMP, LFTs Heme/ID: Coagulopathy secondary to end-stage liver disease Septic shock Possible spontaneous bacterial peritonitis Urinary tract infection 2 units FFP while doing procedures Daily CBC Daily coags Follow-up sputum, blood, urine, peritoneal, pleural cultures Vancomycin with pharmacy dosing Zosyn 2.25 g IV every 8 hours, renal dose Endocrine: Life-threatening hypoglycemia Presumed adrenal insufficiency D10W at 30 cc an hour Every hour Accu-Cheks Hydrocortisone 50 mg IV every 6 hours Prophylaxis: GI Prophylaxis Protonix 40 mg IV every 24 hours DVT Prophylaxis -- SCDs Holding pharmacologic DVT prophylaxis given severe coagulopathy Lines: 08/23 right IJ triple-lumen catheter 2 left radial arterial line 08/23 Wills 215 right 10 [place] pigtail chest tube Dispo: Admit to the ICU. She is very critically ill. This patient remains critically ill with one or more organ systems which are or may become a threat to life. I have spent in excess of 85 minutes discontinuously in the care and management of this patient. This time is exclusive of procedures, and includes, but is not limited to, evaluation of the patient, review of the medical record, discussions with family, consultants, nursing staff, or respiratory therapy, and documentation in the medical record. Code Status Full Code Mario Davis MD Aug 23, 2016 06:34
[2016-08-23] MEDS: RESP: ALBUTEROL 2.5 MG/IPRATROPIUM 0.5 MG NEB (SCH) INH ×3 (07:47→21:39)
[2016-08-23 07:58] LABS: TOTAL PROTEIN,PLEURAL FLUID 1.8 GM/DL
[2016-08-23 08:16] LABS: AUTOMATED NEUTROPHIL # 26.9 TH/MM3 (1.8-7.7); EOSINOPHIL % 0.1 % (0.0-4.0); LYMPH % 1.4 % (9.0-44.0); LYMPHOCYTE # 0.4 TH/MM3 (1.0-4.8); MEAN CELL VOLUME 116.2 FL (80.0-100.0); MEAN CORPUSCULAR HEMOGLOBIN 39.2 PG (27.0-34.0); MEAN CORPUSCULAR HGB CONC 33.8 % (32.0-36.0); MONO % 3.3 % (0.0-8.0); NEUT % 95.2 % (16.0-70.0); PLATELET COUNT 35 TH/MM3 (150-450); RED BLOOD COUNT 1.56 MIL/MM3 (4.00-5.30); RED CELL DISTRIBUTION WIDTH 15.5 % (11.6-17.2); WHITE BLOOD COUNT 28.3 TH/MM3 (4.0-11.0)
[2016-08-23 08:27] LABS: HEMO FLAGS AUTO DIFF
[2016-08-23 08:28] LABS: PERITONEAL WBC 127 /MM3 (0-10)
[2016-08-23 08:29] LABS: HEMATOCRIT 18.1 % (35.0-46.0)
[2016-08-23 08:29] LABS: PERITONEAL LYMPHS 17 %; PERITONEAL MONOS 3 %; PERITONEAL POLYS(SEGS) 80 %
[2016-08-23 08:30] LABS: PLEURAL FLUID LYMPHS 2 %
[2016-08-23] MEDS: CHLORHEXIDINE 0.12% (ORAL KIT) 15 ML CUP MT SCH ×2 (08:37→19:45)
[2016-08-23 08:39] LABS: BICARBONATE 23.5 MEQ/L (21.0-32.0)
[2016-08-23] MEDS ORDERED: PANTOPRAZOLE SODIUM 40 MG VIAL IV SCH (09:00)
[2016-08-23] MEDS: SODIUM CHLORIDE 0.9% FLUSH 5 ML FLUSH IV FLUSH SCH ×2 (09:07→19:45)
[2016-08-23] MEDS: PIPERACIL-TAZO 2.25 GM PREMIX 50 ML IV SCH ×2 (09:07→17:04)
[2016-08-23] MEDS ORDERED: PHENYLEPHRINE HCL 160 MG/D5W 484 ML ADMIX IV SCH ×2 (10:00)
[2016-08-23 10:12] LABS: BANDS 24 % (0-6); NEUTROPHIL # MANUAL DIFF 25.5 TH/MM3 (1.8-7.7); POLYS (SEG NEUTROPHILS) 66 % (16-70); TOXIC GRANULATION 1+ (NORMAL); WBC DIFF SAMPLE 100
[2016-08-23 10:13] LABS: ACANTHOCYTES 1+ (NORMAL); OVALOCYTES 1+ (NORMAL); PLATELET ESTIMATE SMEAR LOW (NORMAL); PLATELET MORPHOLOGY NORMAL (NORMAL); SCAN/DIFF FINAL DIFF MANUAL
[2016-08-23 10:14] LABS: KERATOCYTES OCC (NORMAL)
--- NOTE | 2016-08-23 11:00 | EC ---
Study Study Date:08/23/2016 STUDY CONCLUSIONS SUMMARY - Procedure narrative: Transthoracic echocardiography. Image quality was good. Scanning was performed from the parasternal, apical, and subcostal acoustic windows. - Left ventricle: The cavity size was normal. Wall thickness was normal. Systolic function was vigorous. The estimated ejection fraction was in the range of 65% to 70%. Wall motion was normal; there were no regional wall motion abnormalities. - Mitral valve: Trace regurgitation. If LV function is below 40, please consider prescribing an ACEI or ARB or document rationale for non-use. PROCEDURE DATA STUDY STATUS: Elective. Procedure: Transthoracic echocardiography. Image quality was good. Scanning was performed from the parasternal, apical, and subcostal acoustic windows. Study completion: The patient tolerated the procedure well. Transthoracic echocardiography. M-mode, complete 2D, complete spectral Doppler, and color Doppler. Patient status: Inpatient. CARDIAC ANATOMY LEFT VENTRICLE: The cavity size was normal. Wall thickness was normal. Systolic function was vigorous. The estimated ejection fraction was in the range of 65% to 70%. Wall motion was normal; there were no regional wall motion abnormalities. AORTIC VALVE: Trileaflet; normal thickness leaflets. Doppler: Transvalvular velocity was within the normal range. There was no stenosis. No regurgitation. Mean gradient: 10mm Hg (S). Peak gradient: 22mm Hg (S). AORTA: Aortic root: The aortic root was normal in size. MITRAL VALVE: Structurally normal valve. Doppler: Transvalvular velocity was within the normal range. There was no evidence for stenosis. Trace regurgitation. LEFT ATRIUM: The atrium was normal in size. RIGHT VENTRICLE: The cavity size was normal. Wall thickness was normal. PULMONIC VALVE: Doppler: Transvalvular velocity was within the normal range. There was no evidence for stenosis. No regurgitation. TRICUSPID VALVE: Structurally normal valve. Doppler: Transvalvular velocity was within the normal range. No regurgitation. PULMONARY ARTERY: The main pulmonary artery was normal-sized. Systolic pressure was within the normal range. RIGHT ATRIUM: The atrium was normal in size. PERICARDIUM: There was no pericardial effusion. SYSTEMIC VEINS: Inferior vena cava: The vessel was normal in size. BASIC MEASUREMENTS ADULT NORMAL Left ventricle LV internal dimension, ED, chordal level, 43.2 mm 43-52 PLAX LV internal dimension, ES, chordal level, 28.8 mm 23-38 PLAX Fractional shortening, chordal level, PLAX 33 % >29 LV posterior wall thickness, ED 5.96 mm IVS/LVPW ratio, ED 1.13 <1.3 Ventricular septum Septal thickness, ED 6.73 mm Aortic valve Leaflet separation 18 mm 15-26 Left atrium Anterior-posterior dimension 34 mm Right ventricle RV internal dimension, ED, PLAX 19 mm 19-38 BASIC MEASUREMENTS ADULT NORMAL Aortic valve Leaflet separation 18 mm 15-26 DOPPLER MEASUREMENTS ADULT NORMAL Aortic valve Peak velocity, S 237 cm/s Mean velocity, S 142 cm/s VTI, S 48.1 cm Mean gradient, S 10 mm Hg Peak gradient, S 22 mm Hg Mitral valve Maximal regurgitant velocity 445 cm/s Tricuspid valve Regurgitant peak velocity 276 cm/s Peak RV-RA gradient, S 30 mm Hg Maximal regurgitant velocity 276 cm/s Systemic veins Estimated CVP 10 mm Hg Right ventricle RV pressure, S *54 mm Hg <30 LEGEND: Mean values are shown as u=mean value. Asterisk (*) jerome values outside specified normal range. Prepared and signed by Marbin Werner [id number]
[2016-08-23 13:29] LABS: HEMATOCRIT 21.1 % (35.0-46.0)
[2016-08-23 13:31] LABS: APTT (PATIENT) 44.1 SEC (24.3-30.1); INTERNATIONAL NORMALIZED RATIO 1.7 RATIO; PROTHROMBIN TIME - PATIENT 19.4 SEC (9.8-11.6)
[2016-08-23 13:39] LABS: REVIEW FLAG FINAL
[2016-08-23 13:41] LABS: POTASSIUM 5.2 MEQ/L (3.5-5.1)
[2016-08-23 13:43] LABS: INDIRECT BILIRUBIN 5.1 MG/DL (0.0-0.8)
--- NOTE | 2016-08-23 14:14 | HHI.CCPN ---
Subjective Remarks/Hospital Course This is a 60-year-old female with a past medical history of end-stage liver disease secondary to alcoholic cirrhosis who was vacationing from [place] for the week and has had approximately 1 week of worsening weakness, malaise, fatigue which culminated tonight when her called 911 for worsening fatigue. In the ambulance on the way to the emergency department, however she had a PEA arrest and had one round of CPR and ROSC was obtained. In the emergency department, she was found to have a glucose in the 30s, a potassium over 8, in multiorgan system failure. Her lactate was 8. She was placed on norepinephrine. A right IJ central line was placed by the ER physician and she was intubated in the emergency department. Her does state that she has had about a week of worsening abdominal pain for which she did not seek medical attention. The does not know much more about her acute illness, but she denied any other symptoms prior to arriving. 08/23: After numerous blood, platelet, and plasma transfusions she is finally correcting her coagulation profile. Urine output marginal, acid-base balance still critical. Gas exchange acceptable. Objective Vital Signs Date Time Temp Pulse Resp B/P Pulse Ox O2 Delivery O2 Flow Rate FiO2 08/23/16 12:00 84 08/23/16 12:00 97.9 16 122/50 99 08/23/16 12:00 30 08/23/16 01:30 Ventilator 08/22/16 22:30 15.00 Result Diagram: 08/23/16 1300 08/23/16 1300 Other Results Laboratory Tests Test 08/22/16 08/23/16 23:28 03:22 Blood Gas Puncture Site RT RADIAL LILIBETH Blood Gas Patient Temperature 98.6 98.6 Blood Gas HCO3 13 mmol/L 19 mmol/L (22-26) (22-26) Blood Gas Base Excess -11.4 mmol/L -5.0 mmol/L (-2-2) (-2-2) Blood Gas Oxygen Saturation 96 % (90-100) 97 % (90-100) Arterial Blood pH 7.37 7.39 (7.380-7.420) (7.380-7.420) Arterial Blood Partial 23 mmHg (38-42) 33 mmHg (38-42) Pressure CO2 Arterial Blood Partial 340 mmHG 202 mmHg Pressure O2 (61-120) (61-120) Arterial Blood Oxygen Content 12.0 Vol % 11.0 Vol % (12.0-20.0) (12.0-20.0) Arterial Blood 3.4 % (0-4) 2.7 % (0-4) Carboxyhemoglobin Arterial Blood Methemoglobin 1.6 % (0-2) 0.5 % (0-2) Blood Gas Hemoglobin 8.3 G/DL 7.7 G/DL (12.0-16.0) (12.0-16.0) Oxygen Delivery Device VENTILATOR VENTILATOR Blood Gas Ventilator Setting VAC16/500/PEEP5 AC/18/450/PEEP5 Blood Gas Inspired Oxygen 100 % 50 % Imaging I performed a bedside critical care ultrasound which demonstrates mild LV systolic dysfunction globally, preserved RV function, no significant valvular lesions. No pericardial effusion. Collapsible IVC. Last [address] 08/22/162245 Signed Impressions: Service Date/Time: Tuesday, August 23, 2016 02:36 - CONCLUSION: 1. No evidence of acute intracranial pathology. No masses are identified. Víctor Cook MD Chest X-Ray 08/22/162245 Signed Impressions: Service Date/Time: Monday, August 22, 2016 22:56 - CONCLUSION: 1. Satisfactory position of endotracheal tube as above. 2. Uncomplicated line placement. No evidence of pneumothorax. Víctor Cook MD Abdomen/Pelvis CT 08/22/162245 Signed Impressions: Service Date/Time: Tuesday, August 23, 2016 02:39 - CONCLUSION: 1. No evidence of acute abdominal or pelvic process. No masses are identified. 2. Large volume ascites Víctor Cook MD Objective Remarks GENERAL: Middle-aged ill-appearing female, lying in bed, critically ill, intubated. HEENT: Pupils 3 mm, sluggishly reactive, equal, conjugate. . NECK: Trachea is midline. No JVD. Orally intubated. CHEST: Equal chest rise. Coarse breath sounds. Acceptable air movement. CARDIOVASCULAR: Tachycardic rate, regular rhythm. No appreciable murmurs. + JVD , cvp 16. ABDOMEN: Soft, protuberant, positive fluid wave, moderately distended, no guarding. Stigmata of chronic liver disease MUSCULOSKELETAL: 2+ peripheral edema of the lower extremities. Distal pulses 1+ . NEUROLOGICAL: Intubated, mildly sedated. Weakly withdraws 4 to stimulation. A/P Assessment and Plan Assessment: This is a 60-year-old female with end-stage liver disease secondary to alcoholic cirrhosis who presents after cardiac arrest with multiorgan system failure. Given her history, it seems as if septic shock with delayed presentation to be the ultimate cause of her clinical decline. As far as her cardiac arrest, this could be hyperkalemia or hypoglycemia or from refractory shock. In terms of her shock state, this could be from acute pancreatitis given her elevated lipase level, this also could be from spontaneous bacterial peritonitis. Her states that she gets weekly high-volume paracenteses so there is clearly an access for abdominal infection. This could also be acute pyelonephritis or urinary tract infection. In addition all this, her CT chest abdomen and pelvis demonstrates a large right pleural effusion which could be ascites from microperforations the diaphragm or an empyema or hemothorax from's chest compressions. We will pursue diagnostic paracentesis, thoracentesis. We will treat her empirically with vancomycin and Zosyn. We will pretty culture her. She is now on 2 pressors and we will aggressively manage her sepsis. We will also aggressively manage her hyperkalemia, which if unresponsive to conservative measures may require renal replacement therapy. At this point she is severely critically ill in multiorgan system failure. I'm not sure given her severity of her end-stage liver disease if she will survive this acute illness. I have discussed this with her who understands. Plan by systems: Neurologic: Metabolic encephalopathy Hyperammonemia Possible hypoxic ischemic encephalopathy Alcohol abuse Every hour neuro checks Versed for sedation, goal RASS -2. Think this point she is still too hemodynamically unstable for propofol When she is more clinically stable, we will need to restart lactulose and rifaximin for her elevated ammonia level, however she is too unstable this point Monitor for alcohol withdrawal Avoiding long-acting sedating meds IV thiamine Respiratory: Acute hypoxic and hypercarbic respiratory failure Right-sided hemothorax Placed right-sided atypical chest tube, please see separate procedure for details Vent bundle Head of bed 30 Wean FiO2 for goal SPO2 greater than 90% Low tidal volume ventilation Does not meet SBT criteria today for hemodynamic instability Cardiovascular: Septic shock Status post cardiac arrest Norepinephrine and vasopressin for goal map greater than 65 Cardiac arrest could be secondary to hyperkalemia or hypoglycemia or septic shock with delayed presentation Renal: Acute kidney injury Wills for accurate I's and O's Follow-up urine electrolytes CT abdomen and pelvis without evidence of hydronephrosis -- Strict I/Os FEN/GI: Acute life-threatening hyperkalemia Intravascular hypovolemia End-stage liver disease Alcoholic cirrhosis Elevated lipase Possible spontaneous bacterial peritonitis Ascites Acute protein calorie malnutritionsevere Severe hypoalbuminemia Nothing by mouth given high vasopressor requirements Kayexalate, insulin D50, sodium bicarbonate, calcium chloride for hyperkalemia. We'll recheck potassium. May require renal replacement therapy Diagnostic paracentesis Follow-up peritoneal cultures Albumin 25% 100 mL's 1 given hemodynamic instability with septic shock and a serum albumin level less than 2.5 Daily BMP, LFTs Heme/ID: Coagulopathy secondary to end-stage liver disease Septic shock Possible spontaneous bacterial peritonitis Urinary tract infection 2 units FFP while doing procedures Daily CBC Daily coags Follow-up sputum, blood, urine, peritoneal, pleural cultures Vancomycin with pharmacy dosing Zosyn 2.25 g IV every 8 hours, renal dose -Additional 2 u FFP. --DDAVP Endocrine: Life-threatening hypoglycemia Presumed adrenal insufficiency D10W at 30 cc an hour Every hour Accu-Cheks Hydrocortisone 50 mg IV every 6 hours Prophylaxis: GI Prophylaxis Protonix 40 mg IV every 24 hours DVT Prophylaxis -- SCDs Holding pharmacologic DVT prophylaxis given severe coagulopathy Lines: 215 right IJ triple-lumen catheter 2/15 left radial arterial line 215 Wills 2/15 right 10 [place] pigtail chest tube Overall impression: Critically ill and deteriorating. Multisystem organ failure and cardiac arrest last evening. Coagulopathy persists. It will be very difficult for her to regain enough liver function to survive this infection. Not a transplant candidate under any circumstances. Fulminant sepsis, source unclear. Discussed renal, liver, lung, coagulation defects and encephalopathy with at the bedside. I expressed that this probably started as severe sepsis and hypotension followed by acidosis and cardiovascular collapse. The period of decline appears to have involved 4-5 days prior to admission. Critical Care 50 mins Dean Flores MD Aug 23, 2016 14:14
[2016-08-23] MEDS ORDERED: DESMOPRESSIN ACETATE 4 MCG/ML VIAL IV PUSH ONE (14:30)
[2016-08-23] MEDS ORDERED: MISC INFORMATION XX ONE (19:00)
[2016-08-23] MEDS ORDERED: DEXTROSE 50% IN WATER 50 ML VIAL(D50) IV PUSH PRN (19:00)
[2016-08-23] MEDS: INSULIN REGULAR 100 UNITS/100 ML NS ALGORITHM 3 IV SCH ×2 (20:25)
[2016-08-23 20:45] LABS: REVIEW FLAG FINAL
[2016-08-23 20:46] LABS: HEMATOCRIT 20.8 % (35.0-46.0)
--- NOTE | 2016-08-23 22:55 | EKG ---
Date Performed: 08/22/2016 Time Performed: 22:55:55 PTAGE: 60 years EKG: Junctional rhythm Complete AV dissociation ABNORMAL ECG PREVIOUS TRACING : 08/22/2016 22.40 DOCTOR: Scar Aponte Interpretating Date/Time 08/23/2016 22:53:19
[2016-08-24] VITALS (23 sets, daily range): BP systolic 116–145; BP diastolic 45–66; PULSE 79–93; RESP 16; TEMP 90–99; O2SAT 94–100
[2016-08-24] MEDS: PIPERACIL-TAZO 2.25 GM PREMIX 50 ML IV SCH ×3 (00:27→16:32)
[2016-08-24] MEDS: CHLORHEXIDINE GLUCONATE 2 % 1 PACK (2 CLOTHS) TOP SCH (03:09)
[2016-08-24] MEDS: RESP: ALBUTEROL 2.5 MG/IPRATROPIUM 0.5 MG NEB (SCH) INH ×3 (03:20→16:04)
[2016-08-24] MEDS: NOREPINEPHRINE-DEXTROSE DRIP 250 ML IV SCH ×3 (04:35→17:20)
[2016-08-24 05:05] LABS: HEMATOCRIT 24.9 % (35.0-46.0); MEAN CELL VOLUME 90.6 FL (80.0-100.0); MEAN CORPUSCULAR HEMOGLOBIN 32.5 PG (27.0-34.0); MEAN CORPUSCULAR HGB CONC 35.9 % (32.0-36.0); PLATELET COUNT 32 TH/MM3 (150-450); RED BLOOD COUNT 2.75 MIL/MM3 (4.00-5.30); RED CELL DISTRIBUTION WIDTH 25.5 % (11.6-17.2); WHITE BLOOD COUNT 24.8 TH/MM3 (4.0-11.0)
[2016-08-24 05:08] LABS: REVIEW FLAG FINAL
[2016-08-24 05:21] LABS: APTT (PATIENT) 36.2 SEC (24.3-30.1); INTERNATIONAL NORMALIZED RATIO 1.7 RATIO
[2016-08-24 05:39] LABS: BICARBONATE 26.3 MEQ/L (21.0-32.0); POTASSIUM 3.8 MEQ/L (3.5-5.1); TOTAL BILIRUBIN ADULT 10.3 MG/DL (0.2-1.0)
[2016-08-24] MEDS: HYDROCORTISONE SOD SUCCINATE 100 MG VIAL IV PUSH SCH ×3 (05:56→18:03)
--- NOTE | 2016-08-24 07:02 | HHI.CCPN ---
Subjective Remarks/Hospital Course This is a 60-year-old female with a past medical history of end-stage liver disease secondary to alcoholic cirrhosis who was vacationing from [place] for the week and has had approximately 1 week of worsening weakness, malaise, fatigue which culminated tonight when her called 911 for worsening fatigue. In the ambulance on the way to the emergency department, however she had a PEA arrest and had one round of CPR and ROSC was obtained. In the emergency department, she was found to have a glucose in the 30s, a potassium over 8, in multiorgan system failure. Her lactate was 8. She was placed on norepinephrine. A right IJ central line was placed by the ER physician and she was intubated in the emergency department. Her does state that she has had about a week of worsening abdominal pain for which she did not seek medical attention. The does not know much more about her acute illness, but she denied any other symptoms prior to arriving. 08/23: After numerous blood, platelet, and plasma transfusions she is finally correcting her coagulation profile. Urine output marginal, acid-base balance still critical. Gas exchange acceptable. 08/24: General oozing continues from skin sites. Hgb unchanged overnight. Bilirubin remains elevated. Gas exchange acceptable. E. coli in blood and urine. Possibly all started as an E. coli UTI. She continues to decline overall and now has multisystem organ failure. is imminent. 1850 hrs: Family, and 3 children, have decided to make her DNR/comfort measures only. They would like withdrawal of all artificial support. They want to be assured that she has proper sedation and will not experience any pain or discomfort. We will comply. Objective Vital Signs Date Time Temp Pulse Resp B/P Pulse Ox O2 Delivery O2 Flow Rate FiO2 08/24/16 06:00 82 08/24/16 04:02 95 30 08/24/16 04:00 98.8 16 134/50 08/23/16 01:30 Ventilator 08/22/16 22:30 15.00 Intake and Output 08/23/16 08/23/16 08/24/16 08:00 16:00 00:00 Intake Total 3075 ml 2428 ml 1822 ml Output Total 2895 ml 1740 ml 1115 ml Balance 180 ml 688 ml 707 ml Result Diagram: 08/24/1642908/24/16429 Imaging I performed a bedside critical care ultrasound which demonstrates mild LV systolic dysfunction globally, preserved RV function, no significant valvular lesions. No pericardial effusion. Collapsible IVC. Last [address] 08/22/162245 Signed Impressions: Service Date/Time: Tuesday, August 23, 2016 02:36 - CONCLUSION: 1. No evidence of acute intracranial pathology. No masses are identified. Víctor Cook MD Chest X-Ray 08/22/162245 Signed Impressions: Service Date/Time: Monday, August 22, 2016 22:56 - CONCLUSION: 1. Satisfactory position of endotracheal tube as above. 2. Uncomplicated line placement. No evidence of pneumothorax. Víctor Cook MD Abdomen/Pelvis CT 08/22/162245 Signed Impressions: Service Date/Time: Tuesday, August 23, 2016 02:39 - CONCLUSION: 1. No evidence of acute abdominal or pelvic process. No masses are identified. 2. Large volume ascites Víctor Cook MD Objective Remarks GENERAL: Middle-aged ill-appearing female, lying in bed, critically ill, intubated. HEENT: Pupils 3 mm, non-reactive, equal, conjugate. NECK: Trachea is midline. No JVD. Orally intubated. CHEST: Equal chest rise. Coarse breath sounds. Acceptable air movement. CARDIOVASCULAR: Tachycardic rate, regular rhythm. No appreciable murmurs. + JVD , cvp 15. ABDOMEN: Soft, protuberant, positive fluid wave, moderately distended, no guarding. Stigmata of chronic liver disease. BS absent. MUSCULOSKELETAL: 2+ peripheral edema of the lower extremities. Distal pulses absent. NEUROLOGICAL: Intubated, mildly sedated for vent synchrony. Weakly withdraws 4 to aggressive stimulation. A/P Assessment and Plan Assessment: This is a 60-year-old female with end-stage liver disease secondary to alcoholic cirrhosis who presents after cardiac arrest with multiorgan system failure. Given her history, it seems as if septic shock with delayed presentation to be the ultimate cause of her clinical decline. As far as her cardiac arrest, this could be hyperkalemia or hypoglycemia or from refractory shock. In terms of her shock state, this could be from acute pancreatitis given her elevated lipase level, this also could be from spontaneous bacterial peritonitis. Her states that she gets weekly high-volume paracenteses so there is clearly an access for abdominal infection. This could also be acute pyelonephritis or urinary tract infection. In addition all this, her CT chest abdomen and pelvis demonstrates a large right pleural effusion which could be ascites from microperforations the diaphragm or an empyema or hemothorax from's chest compressions. I'm not sure given her severity of her end-stage liver disease if she will survive this acute illness. I have discussed this with her who understands. Plan by systems: Neurologic: Metabolic encephalopathy Hyperammonemia Possible hypoxic ischemic encephalopathy Alcohol abuse Every hour neuro checks Versed for sedation, goal RASS -2. Think this point she is still too hemodynamically unstable for propofol Restart lactulose and rifaximin for her elevated ammonia level. Monitor for alcohol withdrawal Avoiding long-acting sedating meds IV thiamine --Withdrawal prophylaxis. Respiratory: Acute hypoxic and hypercarbic respiratory failure Right-sided hemothorax Placed right-sided atypical chest tube, please see separate procedure for details Vent bundle Head of bed 30 Wean FiO2 for goal SPO2 greater than 90% Low tidal volume ventilation Does not meet SBT criteria today for hemodynamic instability Cardiovascular: Septic shock Status post cardiac arrest Norepinephrine and vasopressin for goal map greater than 65 Cardiac arrest could be secondary to hyperkalemia or hypoglycemia or septic shock with delayed presentation --Function acceptable for clinical condition. Renal: Acute kidney injury Johann for accurate I's and O's Follow-up urine electrolytes CT abdomen and pelvis without evidence of hydronephrosis -- Strict I/Os FEN/GI: Acute life-threatening hyperkalemia Intravascular hypovolemia End-stage liver disease Alcoholic cirrhosis Elevated lipase Possible spontaneous bacterial peritonitis Ascites Acute protein calorie malnutritionsevere Severe hypoalbuminemia Nothing by mouth given high vasopressor requirements Kayexalate, insulin D50, sodium bicarbonate, calcium chloride for hyperkalemia. We'll recheck potassium. May require renal replacement therapy Diagnostic paracentesis -> no growth Follow-up peritoneal cultures Albumin 25% 100 mL's 1 given hemodynamic instability with septic shock and a serum albumin level less than 2.5 Daily BMP, LFTs Heme/ID: Coagulopathy secondary to end-stage liver disease Septic shock Possible spontaneous bacterial peritonitis Urinary tract infection 2 units FFP while doing procedures Daily CBC Daily coags Follow-up sputum, blood, urine, peritoneal, pleural cultures Vancomycin with pharmacy dosing Zosyn 2.25 g IV every 8 hours, renal dose -Additional 2 u FFP. --DDAVP --Check fibrinogen. Endocrine: Life-threatening hypoglycemia Presumed adrenal insufficiency D10W at 30 cc an hour Every hour Accu-Cheks Hydrocortisone 50 mg IV every 6 hours Prophylaxis: GI Prophylaxis Protonix 40 mg IV every 24 hours DVT Prophylaxis -- SCDs Holding pharmacologic DVT prophylaxis given severe coagulopathy Lines: 08/23 right IJ triple-lumen catheter 08/23 left radial arterial line 08/23 Wills 08/23 right 10 Citizen [place] pigtail chest tube Overall impression: Critically ill and quite unstable. Multisystem organ failure and cardiac arrest on arrival. Coagulopathy persists. It will be very difficult for her to regain enough liver function to survive this infection. Not a transplant candidate under any circumstances. Fulminant sepsis, source may be urinary tract. GNR identified. is imminent. Discussed renal, liver, lung, coagulation defects and encephalopathy with at the bedside. I expressed that this probably started as severe sepsis and hypotension followed by acidosis and cardiovascular collapse. The period of decline appears to have involved 4-5 days prior to admission. Family wants DNR/ comfort status. Critical Care 48 mins Dean Flores MD Aug 24, 2016 07:01
[2016-08-24] MEDS: CHLORHEXIDINE 0.12% (ORAL KIT) 15 ML CUP MT SCH ×2 (08:03→20:00)
[2016-08-24] MEDS: SODIUM CHLORIDE 0.9% FLUSH 5 ML FLUSH IV FLUSH SCH ×2 (08:25→21:00)
[2016-08-24] MEDS: LACTULOSE SYRUP 20 GM/30 ML CUP PO SCH ×3 (08:35→16:33)
[2016-08-24] MEDS: PANTOPRAZOLE SODIUM 40 MG VIAL IV SCH ×2 (08:35→21:00)
[2016-08-24] MEDS: INSULIN REGULAR 100 UNITS/100 ML NS ALGORITHM 3 IV SCH ×2 (09:00)
[2016-08-24] MEDS ORDERED: DESMOPRESSIN ACETATE 4 MCG/ML VIAL IV PUSH SCH (09:00)
[2016-08-24] MEDS ORDERED: RIFAMPIN 150 MG CAP PO SCH (09:00)
[2016-08-24 12:41] LABS: UR UREA/CREAT RATIO 10.94 mg/mg (())
[2016-08-24] MEDS: VASOPRESSIN INJ 40 UNITS in DEXTROSE 5% IN WATER 100ML INJ 98 ML IV SCH ×2 (13:05)
[2016-08-24] MEDS ORDERED: LORazepam 2 MG/ML VIAL IV PUSH ONE (19:15)
[2016-08-24] MEDS ORDERED: LORazepam 2 MG/ML VIAL IV PUSH PRN (19:15)
[2016-08-24] MEDS ORDERED: GLYCOPYRROLATE 0.2 MG/ML VIAL IM ONE (19:15)
[2016-08-24] MEDS ORDERED: MORPHINE SULFATE 8 MG/ML INJ IV PUSH ONE (19:15)
--- NOTE | 2016-08-24 20:32 | HHI.CCPN ---
Subjective Remarks/Hospital Course I have evaluated patient and reviewed her medical record. She is an unfortunate lady with alcoholic cirrhosis and end stage liver disease who suffered cardiac arrest. She subsequently has been in refractory shock and multiorgan failure with worsening acidemia despite aggressive medical care. Her condition is terminal. She is not capacitated for medical decision making. Her family would like to transition to comfort measures. Dr. Flores planning to facilitate transition to comfort measures when family is ready. I have signed exhibit forms as consulting physician. Objective Vital Signs Date Time Temp Pulse Resp B/P Pulse Ox O2 Delivery O2 Flow Rate FiO2 08/24/16 18:00 85 08/24/16 16:20 97.5 16 131/48 100 08/24/16 16:05 30 08/23/16 01:30 Ventilator 08/22/16 22:30 15.00 Intake and Output 08/23/16 08/23/16 08/24/16 08:00 16:00 00:00 Intake Total 3075 ml 2428 ml 1822 ml Output Total 2895 ml 1740 ml 1115 ml Balance 180 ml 688 ml 707 ml Result Diagram: 08/24/16 0430 08/24/16 0430 Other Results Microbiology Date/Time Procedure Status Source Growth 08/22/16 23:15 Urine Culture - Final Complete Urine Catheterized Urine Escherichia Coli Imaging I performed a bedside critical care ultrasound which demonstrates mild LV systolic dysfunction globally, preserved RV function, no significant valvular lesions. No pericardial effusion. Collapsible IVC. Last [address] 08/22/162245 Signed Impressions: Service Date/Time: Tuesday, August 23, 2016 02:36 - CONCLUSION: 1. No evidence of acute intracranial pathology. No masses are identified. Víctor Cook MD Chest X-Ray 08/22/162245 Signed Impressions: Service Date/Time: Monday, August 22, 2016 22:56 - CONCLUSION: 1. Satisfactory position of endotracheal tube as above. 2. Uncomplicated line placement. No evidence of pneumothorax. Víctor Cook MD Abdomen/Pelvis CT 08/22/162245 Signed Impressions: Service Date/Time: Tuesday, August 23, 2016 02:39 - CONCLUSION: 1. No evidence of acute abdominal or pelvic process. No masses are identified. 2. Large volume ascites MD Bao Valladares Cheryl M. MD Aug 24, 2016 20:32 Satisfactory position of endotracheal tube as above. 2. Uncomplicated line placement. No evidence of pneumothorax. Víctor Cook MD Abdomen/Pelvis CT 08/22/16 [id number] Signed Impressions: Service Date/Time: Tuesday, August 23, 2016 02:39 - CONCLUSION: 1. No evidence of acute abdominal or pelvic process. No masses are identified. 2. Large volume ascites Víctor Cook MD A/P Assessment and Plan Assessment: This is a 60-year-old female with end-stage liver disease secondary to alcoholic cirrhosis who presents after cardiac arrest with multiorgan system failure. Given her history, it seems as if septic shock with delayed presentation to be the ultimate cause of her clinical decline. As far as her cardiac arrest, this could be hyperkalemia or hypoglycemia or from refractory shock. In terms of her shock state, this could be from acute pancreatitis given her elevated lipase level, this also could be from spontaneous bacterial peritonitis. Her states that she gets weekly high-volume paracenteses so there is clearly an access for abdominal infection. This could also be acute pyelonephritis or urinary tract infection. In addition all this, her CT chest abdomen and pelvis demonstrates a large right pleural effusion which could be ascites from microperforations the diaphragm or an empyema or hemothorax from's chest compressions. I'm not sure given her severity of her end-stage liver disease if she will survive this acute illness. I have discussed this with her who understands. Plan by systems: Neurologic: Metabolic encephalopathy Hyperammonemia Possible hypoxic ischemic encephalopathy Alcohol abuse Every hour neuro checks Versed for sedation, goal RASS -2. Think this point she is still too hemodynamically unstable for propofol Restart lactulose and rifaximin for her elevated ammonia level. Monitor for alcohol withdrawal Avoiding long-acting sedating meds IV thiamine --Withdrawal prophylaxis. Respiratory: Acute hypoxic and hypercarbic respiratory failure Right-sided hemothorax Placed right-sided atypical chest tube, please see separate procedure for details Vent bundle Head of bed 30 Wean FiO2 for goal SPO2 greater than 90% Low tidal volume ventilation Does not meet SBT criteria today for hemodynamic instability Cardiovascular: Septic shock Status post cardiac arrest Norepinephrine and vasopressin for goal map greater than 65 Cardiac arrest could be secondary to hyperkalemia or hypoglycemia or septic shock with delayed presentation --Function acceptable for clinical condition. Renal: Acute kidney injury Wills for accurate I's and O's Follow-up urine electrolytes CT abdomen and pelvis without evidence of hydronephrosis -- Strict I/Os FEN/GI: Acute life-threatening hyperkalemia Intravascular hypovolemia End-stage liver disease Alcoholic cirrhosis Elevated lipase Possible spontaneous bacterial peritonitis Ascites Acute protein calorie malnutritionsevere Severe hypoalbuminemia Nothing by mouth given high vasopressor requirements Kayexalate, insulin D50, sodium bicarbonate, calcium chloride for hyperkalemia. We'll recheck potassium. May require renal replacement therapy Diagnostic paracentesis -> no growth Follow-up peritoneal cultures Albumin 25% 100 mL's 1 given hemodynamic instability with septic shock and a serum albumin level less than 2.5 Daily BMP, LFTs Heme/ID: Coagulopathy secondary to end-stage liver disease Septic shock Possible spontaneous bacterial peritonitis Urinary tract infection 2 units FFP while doing procedures Daily CBC Daily coags Follow-up sputum, blood, urine, peritoneal, pleural cultures Vancomycin with pharmacy dosing Zosyn 2.25 g IV every 8 hours, renal dose -Additional 2 u FFP. --DDAVP --Check fibrinogen. Endocrine: Life-threatening hypoglycemia Presumed adrenal insufficiency D10W at 30 cc an hour Every hour Accu-Cheks Hydrocortisone 50 mg IV every 6 hours Prophylaxis: GI Prophylaxis Protonix 40 mg IV every 24 hours DVT Prophylaxis -- SCDs Holding pharmacologic DVT prophylaxis given severe coagulopathy Lines: 2/15 right IJ triple-lumen catheter 2/15 left radial arterial line 2/15 Wills 2/15 right 10 Irish pigtail chest tube Overall impression: Critically ill and quite unstable. Multisystem organ failure and cardiac arrest on arrival. Coagulopathy persists. It will be very difficult for her to regain enough liver function to survive this infection. Not a transplant candidate under any circumstances. Fulminant sepsis, source may be urinary tract. GNR identified. is imminent. Discussed renal, liver, lung, coagulation defects and encephalopathy with at the bedside. I expressed that this probably started as severe sepsis and hypotension followed by acidosis and cardiovascular collapse. The period of decline appears to have involved 4-5 days prior to admission. Family wants DNR/ comfort status. Critical Care 48 mins Viki Gore MD Aug 24, 2016 20:32 difficult for her to regain enough liver function to survive this infection. Not a transplant candidate under any circumstances. Fulminant sepsis, source may be urinary tract. GNR identified. is imminent. Discussed renal, liver, lung, coagulation defects and encephalopathy with at the bedside. I expressed that this probably started as severe sepsis and hypotension followed by acidosis and cardiovascular collapse. The period of decline appears to have involved 4-5 days prior to admission. Family wants DNR/ comfort status. Critical Care 48 mins Viki Gore MD Aug 24, 2016 20:32
[2016-08-25] VITALS: BP 86/34; PULSE 100; RESP 8; TEMP 90; O2SAT 87
[2016-08-25 00:09] VITALS: O2SAT 100
[2016-08-25] MEDS: CHLORHEXIDINE GLUCONATE 2 % 1 PACK (2 CLOTHS) TOP SCH (03:06)
[2016-08-25 03:48] VITALS: O2SAT 100
[2016-08-25 04:00] VITALS: BP 82/35; PULSE 94; RESP 15; TEMP 90; O2SAT 89
[2016-08-25] MEDS: CHLORHEXIDINE 0.12% (ORAL KIT) 15 ML CUP MT SCH (07:20)
[2016-08-25] MEDS: PANTOPRAZOLE SODIUM 40 MG VIAL IV SCH (07:20)
[2016-08-25] MEDS: SODIUM CHLORIDE 0.9% FLUSH 5 ML FLUSH IV FLUSH SCH (07:21)
[2016-08-25 08:00] VITALS: BP 132/56; PULSE 71; RESP 22; O2SAT 98
[2016-08-25] MEDS: MORPHINE SULFATE 8 MG/ML INJ IV PUSH PRN ×2 (08:29→12:30)
--- NOTE | 2016-08-25 09:22 | HHI.CCPN ---
Subjective Remarks/Hospital Course This is a 60-year-old female with a past medical history of end-stage liver disease secondary to alcoholic cirrhosis who was vacationing from [place] for the week and has had approximately 1 week of worsening weakness, malaise, fatigue which culminated tonight when her called 911 for worsening fatigue. In the ambulance on the way to the emergency department, however she had a PEA arrest and had one round of CPR and ROSC was obtained. In the emergency department, she was found to have a glucose in the 30s, a potassium over 8, in multiorgan system failure. Her lactate was 8. She was placed on norepinephrine. A right IJ central line was placed by the ER physician and she was intubated in the emergency department. Her does state that she has had about a week of worsening abdominal pain for which she did not seek medical attention. The does not know much more about her acute illness, but she denied any other symptoms prior to arriving. 08/23: After numerous blood, platelet, and plasma transfusions she is finally correcting her coagulation profile. Urine output marginal, acid-base balance still critical. Gas exchange acceptable. 08/24: General oozing continues from skin sites. Hgb unchanged overnight. Bilirubin remains elevated. Gas exchange acceptable. E. coli in blood and urine. Possibly all started as an E. coli UTI. She continues to decline overall and now has multisystem organ failure. is imminent. 1850 hrs: Family, and 3 children, have decided to make her DNR/comfort measures only. They would like withdrawal of all artificial support. They want to be assured that she has proper sedation and will not experience any pain or discomfort. We will comply. 08/25: Extubated about 13 hours ago. In shock but no distress. Will see if will accept [facility]. Objective Vital Signs Date Time Temp Pulse Resp B/P Pulse Ox O2 Delivery O2 Flow Rate FiO2 08/25/16 04:00 90.0 94 15 82/35 89 08/24/16 20:00 30 08/23/16 01:30 Ventilator 08/22/16 22:30 15.00 Intake and Output 08/24/16 08/24/16 08/25/16 08:00 16:00 00:00 Intake Total 1204 ml 1292 ml 800 ml Output Total 595 ml 735 ml 520 ml Balance 609 ml 557 ml 280 ml Result Diagram: 08/24/16 0430 08/24/16 0430 Other Results Microbiology Date/Time Procedure Status Source Growth 08/22/16 23:15 Urine Culture - Final Complete Urine Catheterized Urine Escherichia Coli Imaging I performed a bedside critical care ultrasound which demonstrates mild LV systolic dysfunction globally, preserved RV function, no significant valvular lesions. No pericardial effusion. Collapsible IVC. Last [address] 08/22/162245 Signed Impressions: Service Date/Time: Tuesday, August 23, 2016 02:36 - CONCLUSION: 1. No evidence of acute intracranial pathology. No masses are identified. Víctor Cook MD Chest X-Ray 08/22/162245 Signed Impressions: Service Date/Time: Monday, August 22, 2016 22:56 - CONCLUSION: 1. Satisfactory position of endotracheal tube as above. 2. Uncomplicated line placement. No evidence of pneumothorax. Víctor Cook MD Abdomen/Pelvis CT 08/22/162245 Signed Impressions: Service Date/Time: Tuesday, August 23, 2016 02:39 - CONCLUSION: 1. No evidence of acute abdominal or pelvic process. No masses are identified. 2. Large volume ascites Víctor Cook MD Objective Remarks PE: sats mid 80s. Comfortable. Tepid/cool. Poorly perfused. Largely obtunded. A/P Assessment and Plan Assessment: This is a 60-year-old female with end-stage liver disease secondary to alcoholic cirrhosis who presents after cardiac arrest with multiorgan system failure. Given her history, it seems as if septic shock with delayed presentation to be the ultimate cause of her clinical decline. As far as her cardiac arrest, this could be hyperkalemia or hypoglycemia or from refractory shock. In terms of her shock state, this could be from acute pancreatitis given her elevated lipase level, this also could be from spontaneous bacterial peritonitis. Her states that she gets weekly high-volume paracenteses so there is clearly an access for abdominal infection. This could also be acute pyelonephritis or urinary tract infection. In addition all this, her CT chest abdomen and pelvis demonstrates a large right pleural effusion which could be ascites from microperforations the diaphragm or an empyema or hemothorax from's chest compressions. I'm not sure given her severity of her end-stage liver disease if she will survive this acute illness. I have discussed this with her who understands. Plan by systems: Neurologic: Metabolic encephalopathy Hyperammonemia Possible hypoxic ischemic encephalopathy Alcohol abuse Every hour neuro checks Versed for sedation, goal RASS -2. Think this point she is still too hemodynamically unstable for propofol Restart lactulose and rifaximin for her elevated ammonia level. Monitor for alcohol withdrawal Avoiding long-acting sedating meds IV thiamine --Withdrawal prophylaxis. Respiratory: Acute hypoxic and hypercarbic respiratory failure Right-sided hemothorax Placed right-sided atypical chest tube, please see separate procedure for details Vent bundle Head of bed 30 Wean FiO2 for goal SPO2 greater than 90% Low tidal volume ventilation Does not meet SBT criteria today for hemodynamic instability Cardiovascular: Septic shock Status post cardiac arrest Norepinephrine and vasopressin for goal map greater than 65 Cardiac arrest could be secondary to hyperkalemia or hypoglycemia or septic shock with delayed presentation --Function acceptable for clinical condition. Renal: Acute kidney injury Johann for accurate I's and O's Follow-up urine electrolytes CT abdomen and pelvis without evidence of hydronephrosis -- Strict I/Os FEN/GI: Acute life-threatening hyperkalemia Intravascular hypovolemia End-stage liver disease Alcoholic cirrhosis Elevated lipase Possible spontaneous bacterial peritonitis Ascites Acute protein calorie malnutritionsevere Severe hypoalbuminemia Nothing by mouth given high vasopressor requirements Kayexalate, insulin D50, sodium bicarbonate, calcium chloride for hyperkalemia. We'll recheck potassium. May require renal replacement therapy Diagnostic paracentesis -> no growth Follow-up peritoneal cultures Albumin 25% 100 mL's 1 given hemodynamic instability with septic shock and a serum albumin level less than 2.5 Daily BMP, LFTs Heme/ID: Coagulopathy secondary to end-stage liver disease Septic shock Possible spontaneous bacterial peritonitis Urinary tract infection 2 units FFP while doing procedures Daily CBC Daily coags Follow-up sputum, blood, urine, peritoneal, pleural cultures Vancomycin with pharmacy dosing Zosyn 2.25 g IV every 8 hours, renal dose -Additional 2 u FFP. --DDAVP --Check fibrinogen. Endocrine: Life-threatening hypoglycemia Presumed adrenal insufficiency D10W at 30 cc an hour Every hour Accu-Cheks Hydrocortisone 50 mg IV every 6 hours Prophylaxis: GI Prophylaxis Protonix 40 mg IV every 24 hours DVT Prophylaxis -- SCDs Holding pharmacologic DVT prophylaxis given severe coagulopathy Lines: 08/23 right IJ triple-lumen catheter 08/23 left radial arterial line 08/23 Wills 08/23 right 10 German pigtail chest tube Overall impression: Critically ill and quite unstable. Multisystem organ failure and cardiac arrest on arrival. Coagulopathy persists. It will be very difficult for her to regain enough liver function to survive this infection. Not a transplant candidate under any circumstances. Fulminant sepsis, source may be urinary tract. GNR identified. is imminent. Discussed renal, liver, lung, coagulation defects and encephalopathy with at the bedside. I expressed that this probably started as severe sepsis and hypotension followed by acidosis and cardiovascular collapse. The period of decline appears to have involved 4-5 days prior to admission. Family wants DNR/ comfort status. Will try to transfer to [facility] today. Dean Flores MD Aug 25, 2016 09:22
[2016-08-25 12:00] VITALS: BP 99/36; PULSE 81; RESP 30; O2SAT 90
== END 2016-08-25 14:51 | disposition hospice, inpatient (51) | DRG 871 ==
LOC: NEPC 22:34 → NEDA 08-23 00:33 → N03B 08-23 02:54
PROVIDERS: ADMIT Internal Medicine Critical Care Medicine; ATTEND Internal Medicine Critical Care Medicine
PROC: 5A12012 Performance of Cardiac Output, Single, Manual (ICD-10-PCS; principal; 2016-08-23)
PROC: 03HY32Z Insertion of Monitoring Device into Upper Artery, Percutaneous Approach (ICD-10-PCS; 2016-08-23)
PROC: 5A1945Z Respiratory Ventilation, 24-96 Consecutive Hours (ICD-10-PCS; 2016-08-23)
PROC: 0BH17EZ Insertion of Endotracheal Airway into Trachea, Via Natural or Artificial Opening (ICD-10-PCS; 2016-08-23)
PROC: 05HM33Z Insertion of Infusion Device into Right Internal Jugular Vein, Percutaneous Approach (ICD-10-PCS; 2016-08-23)
PROC: 0W9G3ZX Drainage of Peritoneal Cavity, Percutaneous Approach, Diagnostic (ICD-10-PCS; 2016-08-23)
PROC: 0W9930Z Drainage of Right Pleural Cavity with Drainage Device, Percutaneous Approach (ICD-10-PCS; 2016-08-23)
PROC: 30233K1 Transfusion of Nonautologous Frozen Plasma into Peripheral Vein, Percutaneous Approach (ICD-10-PCS; 2016-08-23)
PROC: 30233N1 Transfusion of Nonautologous Red Blood Cells into Peripheral Vein, Percutaneous Approach (ICD-10-PCS; 2016-08-23)
PROC: 30233R1 Transfusion of Nonautologous Platelets into Peripheral Vein, Percutaneous Approach (ICD-10-PCS; 2016-08-23)
DX: A41.9 Sepsis, unspecified organism (principal); I46.9 Cardiac arrest, cause unspecified; R65.21 Severe sepsis with septic shock; G93.41 Metabolic encephalopathy; E43 Unspecified severe protein-calorie malnutrition; J90 Pleural effusion, not elsewhere classified; J96.01 Acute respiratory failure with hypoxia; J96.02 Acute respiratory failure with hypercapnia; D68.9 Coagulation defect, unspecified; N17.9 Acute kidney failure, unspecified; N39.0 Urinary tract infection, site not specified; E27.40 Unspecified adrenocortical insufficiency; J98.11 Atelectasis; J94.2 Hemothorax; K70.31 Alcoholic cirrhosis of liver with ascites; K70.40 Alcoholic hepatic failure without coma; E87.5 Hyperkalemia; E86.1 Hypovolemia; R74.8 Abnormal levels of other serum enzymes; Z68.24 Body mass index [BMI] 24.0-24.9, adult; E88.09 Other disorders of plasma-protein metabolism, not elsewhere classified; E16.2 Hypoglycemia, unspecified; F17.210 Nicotine dependence, cigarettes, uncomplicated; Z87.11 Personal history of peptic ulcer disease; J44.9 Chronic obstructive pulmonary disease, unspecified; Z66 Do not resuscitate; B96.20 Unspecified Escherichia coli [E. coli] as the cause of diseases classified elsewhere; Z51.5 Encounter for palliative care
CPT/HCPCS: 31500; 32551; 36430; 36556; 36600; 49082; 51702; 70450; 71010; 71250; 74176; 80048; 80053; 80074; 80076; 80307; 80320; 81001; 82042; 82140; 82550; 82570; 82805; 82948; 83605; 83615; 83690; 83735; 83930; 83935; 84100; 84157; 84300; 84443; 84484; 84540; 85007; 85014; 85018; 85027; 85384; 85610; 85730; 86850; 86900; 86901; 86920; 86927; 87040; 87070; 87077; 87086; 87186; 87205; 87641; 89051; 93005; 93306; 94002; 94003; 94640; 94664; 96365; C9113; J0461; J0610; J1720; J1815; J1817; J2060; J2250; J2270; J2543; J2597; J3010; J3370; J7030; J7050; J7613; P9016; P9017; P9035; P9047